=== PATIENT | male | born 1960 | race Caucasian/White ===

== ENCOUNTER 2018-08-16 12:39 | Observation (INO) ==
[2018-08-16] MEDS ORDERED: Isovue-370 500 ML INFUS..BTL IV ONE (13:31)
--- NOTE | 2018-08-16 14:09 | Emergency Department Note ---
Disposition Clinical Impression: Bladder cancer metastasized to bone, Edema of left lower extremity Disposition: Admitted As Inpatient Condition: Good Referrals: NONE,PCP [Non-Partnered Physician] - Forms: ED Satisfaction Letter Time of Disposition: 17:26 General Adult HPI - General Chief complaint: ED Extremity Problem,Nontraumatic Stated complaint: LLE Swelling / L Side Pain Time Seen by Provider: 08/16/18 13:10 Source: patient Mode of arrival: ambulatory Limitations: no limitations - History of Present Illness HPI Narrative: This is a 58-year-old male who comes to emergency department stating that his left leg has been swelling for the last 10 days. It started at the left ankle, and has progressed all the way up to his groin. He reports no pain except with weightbearing. He states that he has also had intermittent hematuria over the course of the last several months. He does not know why. Pain Scale: 9 - Related Data Allergies Allergy/AdvReac Type Severity Reaction Status Date / Time latex AdvReac Rash Verified 08/16/18 13:14 All systems ED: reviewed and negative except as stated. Cardiovascular: Reports: edema Genitourinary: Reports: hematuria Past Medical History - Past Medical History Medical history: Reports: cancer, hypertension, other Psychiatric history: Reports: no psych history - Social History Smoking Status: Current every day smoker Alcohol use: Reports: rarely Drug use: Reports: none Physical Exam - General Limitations: no limitations General appearance: alert, in no apparent distress - Head Head exam: atraumatic, normocephalic, normal inspection - Eye Eye exam: Present: normal appearance, PERRL, EOMI. Absent: scleral icterus - Chest Chest inspection: Present: normal inspection, symmetric chest wall rise - Respiratory Respiratory exam: Present: normal lung sounds bilaterally - Cardiovascular Cardiovascular exam: Present: regular rate, normal rhythm, normal heart sounds - Abdominal Exam Abdominal exam: Present: soft, Non-Tender. Absent: tenderness, distention, guarding, rebound, rigidity - Extremities Exam Extremities exam: Present: other (The left leg is dramatically swollen compared to the right, and there is 4+ pedal edema at the malleoli progressing to 2+ just below the knee. The right leg has no edema whatsoever.) - Neurological Exam Neurological exam: Present: alert, oriented X3 - Psychiatric Psychiatric exam: Present: normal affect, normal mood - Skin Skin exam: Present: warm, dry, intact, normal color Course Course Narrative: This is a 58-year-old male with hematuria concerning for a serious cause and also with edema of the left leg only concern for DVT. Vital Signs Temperature 97.7 F 08/16/18 12:41 Pulse Rate 82 08/16/18 12:41 Respiratory Rate 15 08/16/18 12:41 Blood Pressure 158/84 08/16/18 12:41 O2 Sat by Pulse Oximetry 99 08/16/18 12:41 Temperature 97.7 F 08/16/18 13:05 Pulse Rate 79 08/16/18 16:21 Respiratory Rate 20 08/16/18 16:21 Blood Pressure 146/69 08/16/18 16:21 O2 Sat by Pulse Oximetry 97 08/16/18 16:21 Oxygen Delivery Oxygen Delivery Room Air Medical Decision Making - MDM Narrative Medical decision making narrative: This is a 58-year-old male who appears to have bladder cancer with metastasis to the left proximal femur and a mass that is compressing the left iliac vein causing severe pedal edema in the left leg. I discussed his case with Dr. Koenig from oncology, who stated that as long as he did not have an incipient fracture of his left femur that he could be treated well here. This noted below, femur x-ray showed no obvious early fracture. I discussed his case with the on-call hospitalist, who accepted him for admission - Lab Data Lab results reviewed: Yes I reviewed the patient's lab results. Lab results narrative: CBC was unremarkable BMP showed hyponatremia at 123 LFT was unremarkable UA showed 15-20 red blood cells but very few white cells Result diagrams: 08/16/18 14:10 08/16/18 14:10 Lab Results 08/16/18 08/16/18 08/16/18 Range/Units 14:10 14:10 14:15 WBC 6.1 (4.3-11.1) K/mcL RBC 3.94 L (4.19-5.50) M/mcL Hgb 13.3 (12.9-16.9) g/dL Hct 37.0 L (37.5-50.1) % MCV 93.9 (83.0-100.0) fL MCH 33.8 H (28.0-33.3) pg MCHC 35.9 H (31.6-35.5) g/dL RDW 11.6 (11.5-14.5) % Plt Count 219 (140-400) K/mcL MPV 9.5 (9.4-12.4) fL Immature Gran % 0.7 (0-4) % Seg Neutrophils % 81.1 % Lymphocytes % 5.3 % Monocytes % 11.5 % Eosinophils % 0.7 % Basophils % 0.7 % Neutrophils # 5.0 (1.6-8.9) K/mcL Lymphocytes # 0.3 L (0.6-4.6) K/mcL Monocytes # 0.7 (0.0-1.3) K/mcL Eosinophils # 0.0 (0.0-0.6) K/mcL Basophils # 0.0 (0.0-0.2) K/mcL Sodium 123 L (136-145) mEq/L Potassium 4.5 (3.5-5.1) mEq/L Chloride 89 L (98-107) mEq/L Carbon Dioxide 28 (23-29) mEq/L BUN 10 (6-20) mg/dL Creatinine 0.92 (0.70-1.30) mg/dL Est GFR ( Amer) > 60 (> 60) Est GFR (Non-Af Amer) > 60 (> 60) BUN/Creatinine Ratio 11 (6-26) Glucose 102 (70-105) mg/dL Calculated Osmolality 255 L (280-300) Calcium 9.4 (8.6-10.3) mg/dL Total Bilirubin 0.5 (0.3-1.0) mg/dL Direct Bilirubin 0.1 (0.0-0.2) mg/dL Indirect Bilirubin 0.4 (0.0-1.2) mg/dL AST 73 H (13-39) Units/L ALT 13 (7-52) Units/L Alkaline Phosphatase 104 (34-104) Units/L Serum Total Protein 6.1 L (6.4-8.9) g/dL Albumin 3.5 (3.5-5.7) g/dL Globulin 2.6 (2.4-3.5) g/dL Albumin/Globulin Ratio 1.3 (1.1-2.2) Urine Color Yellow (Yellow) Urine Clarity Clear (Clear) Urine pH 6.5 (5.0-8.0) pH Units Ur Specific [place] 1.007 L (1.010-1.025) Urine Protein 100 H (Neg-Trace) mg/dL Urine Glucose (UA) Normal (Normal) mg/dL Urine Ketones Negative (Negative) mg/dL Urine Blood Small H (Negative) Urine Nitrite Negative (Negative) Urine Bilirubin Negative (Negative) Urine Urobilinogen Normal (Normal) mg/dL Ur Leukocyte Esterase Negative (Negative) Urine Microscopic RBC 15-30 H (0-3) per hpf Urine Microscopic WBC 0-3 (0-3) per hpf Ur Squamous Epith Cells Many H (None-Few) per lpf Urine Bacteria None Seen (None-Few) per hpf Hyaline Casts None Seen (None-Few) per lpf Ur Culture Indicated? NO (NO) - Radiology Data Radiology results reviewed: Yes I reviewed the patient's radiology results. CT evidence/pelvis was interpreted by radiology, with a verbal report, of high likelihood of bladder cancer as well as metastasis to the proximal left femur. There was also a mass, likely metastasis, and appears to be compressing the left iliac vein. Doppler ultrasound showed no evidence of DVT X-ray of the femur shows no obvious incipient fracture Critical Care Time Critical Care Time: No
[2018-08-16 14:30] LABS: Bilirubin,Urine Negative (Negative); Blood,Urine Small (Negative); Clarity,Urine Clear (Clear); Color,Urine Yellow (Yellow); Glucose,Urine (UA) Normal (Normal); Ketones,Urine Negative (Negative); Leukocyte Esterase,Urine Negative (Negative); Nitrite,Urine Negative (Negative); PH,Urine 6.5 pH Units (5.0-8.0); Protein,Urine 100 mg/dL (Neg-Trace); Specific Gravity,Urine 1.007 (1.010-1.025); Urobilinogen,Urine Normal (Normal)
[2018-08-16 14:31] LABS: RBC,Urine 15-30 per hpf (0-3); Squamous Epithelial Cell,Urine Many per lpf (None-Few); WBC,Urine 0-3 per hpf (0-3)
[2018-08-16 14:32] LABS: Bacteria,Urine None Seen per hpf (None-Few); Hyaline Casts,Urine None Seen per lpf (None-Few)
[2018-08-16 14:34] LABS: Basophils % 0.7 %; Eosinophils % 0.7 %; Hemoglobin 13.3 g/dL (12.9-16.9); Immature Granulocytes % 0.7 % (0-4); Lymphocytes # 0.3 K/mcL (0.6-4.6); Lymphocytes % 5.3 %; Mean Corpuscular HGB Conc 35.9 g/dL (31.6-35.5); Mean Corpuscular Hemoglobin 33.8 pg (28.0-33.3); Mean Corpuscular Volume 93.9 fL (83.0-100.0); Mean Platelet Volume 9.5 fL (9.4-12.4); Monocytes # 0.7 K/mcL (0.0-1.3); Monocytes % 11.5 %; Platelet Count 219 K/mcL (140-400); Red Blood Count 3.94 M/mcL (4.19-5.50); Red Cell Distribution Width 11.6 % (11.5-14.5); Segmented Neutrophils % 81.1 %
[2018-08-16 14:53] LABS: Alanine Aminotransferase 13 Units/L (7-52); Albumin 3.5 g/dL (3.5-5.7); Albumin/Globulin Ratio 1.3 (1.1-2.2); Alkaline Phosphatase 104 Units/L (34-104); Aspartate Amino Transferase 73 Units/L (13-39); BUN/Creatinine Ratio 11 (6-26); Bilirubin,Direct 0.1 mg/dL (0.0-0.2); Bilirubin,Indirect 0.4 mg/dL (0.0-1.2); Bilirubin,Total 0.5 mg/dL (0.3-1.0); Blood Urea Nitrogen 10 mg/dL (6-20); Calcium 9.4 mg/dL (8.6-10.3); Carbon Dioxide 28 mEq/L (23-29); Chloride 89 mEq/L (98-107); Globulin 2.6 g/dL (2.4-3.5); Glucose 102 mg/dL (70-105); Osmolality,Calculated 255 (280-300); Potassium 4.5 mEq/L (3.5-5.1); Sodium 123 mEq/L (136-145); Total Protein 6.1 g/dL (6.4-8.9); eGFR For Non-African Americans > 60 (> 60)
--- NOTE | 2018-08-16 17:55 | Internal Med History&Physical ---
Date of Encounter: 08/16/18 Time of Encounter: 18:00 Internal Medicine - H&P: HPI Chief complaint: left leg swelling Admitted From: Home History of present illness: Mr. Durham is a 58 year old male with pmhx HTN, tobacco dependence, prostate cancer dx in 2013 and treated with radiation/medication at [facility] without any prior bone mets per pt report. He presents from home with LLE edema, gradually worsening over 10 days. started at ankle and now up to thigh. No similar symptoms in past. No pain with ambulation, no injury or falls, but "tightness" in leg from swelling. no recent immobilization, has been going to work every day and drove here to ED. Nothing has made edema better or worse. on ROS he admits to hematuria intermittently over last 2-4 weeks, with blood clots and difficulty urinating at time. currently urinating without blood or clots, believes he is retaining. no cva tenderness, fevers, chills, dysuria. He admits to low back pain, denies saddle parasthesisas, bowel or bladder incontinence, le weakness, numbness or tingling gen- denies weight loss, night sweats cv-no cp, pressure, palpitations, sob, orthopnea, presyncope or palpitations pulm-no sob, wheezing, cough, dyspnea on exertion skin- no rash, pallor, wounds, jaundice Past Med Surg Social Fam HX - Past Medical History Medical history: cancer (prostate), hypertension, other Additional medical history: prostate surgery Psychiatric history: no psych history - Past Surgical History Additional surgical history: L ankle surgery - Social History Smoking Status: Current every day smoker Alcohol use: rarely Drug use: none Current living situation: Home - Independent Recent Out of Country Travel Within the Last 8 Weeks: No - Additional Family History Additional family history: reviewed and non contributory Internal Medicine - H&P: Meds Allergy/AdvReac Type Severity Reaction Status Date / Time latex AdvReac Rash Verified 08/16/18 13:14 All Systems PM: A 10-system review of systems was performed and is negative for pertinent findings except as documented above in the HPI. - Constitutional Vitals: Temp Pulse Resp BP Pulse Ox 97.7 F 79 20 146/69 97 08/16/18 13:05 08/16/18 16:21 08/16/18 16:21 08/16/18 16:21 08/16/18 16:21 Exam: General: awake, alert, appears stated age HEENT:EOM intact, pupils equal, round, no conjunctival pallor, moist mucus membranes, clear oropharynx Neck: supple, trachea midline Cardiovascular:regular rate and rhythm, normal S1 & S2, no rubs, murmurs or gallops. No JVD. radial pulses 2+, dependent LLE edema to thigh Lungs:Normal breath sounds, no wheezes, or crackles. Normal respiratory effort on ra Abdomen:Soft, non-tender, non-distended, no appreciable masses, no HSM,no rigidity, + bowel sounds Extremities: LLE ROM is intact and painless Neurological: AAOx3, CN grossly intact, no focal deficits, sensation to lt touch intact LLE Skin:Normal color, no rash, no pallor, no jaundice : clear yellow urine in urinal at bedside Internal Med - H&P Results - Labs CBC & Chem 7: 08/16/18 14:10 08/16/18 14:10 Labs: Short CBC 08/16/18 Range/Units 14:10 WBC 6.1 (4.3-11.1) K/mcL Hgb 13.3 (12.9-16.9) g/dL Hct 37.0 L (37.5-50.1) % Plt Count 219 (140-400) K/mcL Neutrophils # 5.0 (1.6-8.9) K/mcL BMP 08/16/18 14:10 Sodium 123 L Potassium 4.5 Chloride 89 L Carbon Dioxide 28 BUN 10 Creatinine 0.92 Glucose 102 Calcium 9.4 Liver Function 08/16/18 Range/Units 14:10 Total Bilirubin 0.5 (0.3-1.0) mg/dL Direct Bilirubin 0.1 (0.0-0.2) mg/dL AST 73 H (13-39) Units/L ALT 13 (7-52) Units/L Alkaline Phosphatase 104 (34-104) Units/L Albumin 3.5 (3.5-5.7) g/dL Urine 08/16/18 Range/Units 14:15 Urine Color Yellow (Yellow) Urine Clarity Clear (Clear) Urine pH 6.5 (5.0-8.0) pH Units Ur Specific [place] 1.007 L (1.010-1.025) Urine Protein 100 H (Neg-Trace) mg/dL Urine Glucose (UA) Normal (Normal) mg/dL - Impressions ITS Impressions Abdomen/Pelvis CT 08/16/18 13:31 IMPRESSION: Findings favored to represent primary bladder malignancy with extensive metastatic disease involving pelvic, inguinal and retroperitoneal lymphadenopathy as well as multiple osseous lesions and likely intramuscular metastatic implants in the left lower extremity. Osseous metastasis in the left proximal femur predispose the patient to pathologic fracture. Consider orthopedic consultation. Moderate bilateral hydronephrosis due to mass effect and likely extension of the mass into the distal ureters. Small right-sided pleural effusion and associated airspace disease. Findings were discussed with Nitish Hernandez at 4:21 pm on 08/16/2018. D/ / Enmanuel Suero MD / Enmanuel Suero MD Interpreting Provider: Enmanuel Suero MD Femur X-Ray 08/16/18 16:47 IMPRESSION: Aggressive appearing sclerotic area within the proximal left femur, which given the patient's urinary bladder findings is most compatible with metastatic disease. At this time, a pathologic fracture is not identified. 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 Circumferential soft tissue swelling, which is nonspecific, but correlate with any clinical evidence of proximal venous obstruction. D/ / Ramos Murphy MD / Ramos Murphy MD Interpreting Provider: Ramos Murphy MD - Assessment and plan (1) Edema of left lower extremity Current Visit: Yes Status: Acute Assessment and plan: 2/2 Bladder cancer with LAD compressing L Iliac vein -prelim vasc read of no DVT in LE -femur xr no identifiable fracture -oncology already contacted and aware, will see pt in am -prn pain control (2) Bladder cancer metastasized to bone Current Visit: Yes Status: Acute Assessment and plan: New diagnosis bladder cancer with mets to bone and inguinal retroperitoneal and pelvic LAD with compression of left iliac vein -femur xr no pathologic fx, + avc necrosis left femoral head without subchondral articular collapse -ct a/p with extensive mets to pelvic, inguinal, retroperitoneal LAD, multiple osseous lesions and intra musclular lesions LLE -Moderate BL hydronephrosis due to mass effect on ureters--d/w urology and will eval tomorrow, npo p mn, am coags as likely will need bl nephrosotomy tubes -check pvr but defer greenberg placement at this time pending urology eval -oncology following--will check CT chest wo contrast and lumbar spine xr (3) HTN (hypertension) Current Visit: Yes Status: Chronic Assessment and plan: hold home losartan at this time, monitoring creat with hydronephrosis, had dose today Qualifiers: Hypertension type: essential hypertension Qualified Code(s): I10 - Essential (primary) hypertension (4) Hyponatremia Current Visit: Yes Status: Acute Assessment and plan: Na 123 without any cognitive deficits -while lle is non pitting edema, he appears hypovolemic -very gentle NS ivfs overnight, monitor pvrs, neuro checks and q 6 hr na levels -check tsh, may be related to cancer (5) Tobacco dependence Current Visit: Yes Status: Chronic Assessment and plan: declines patch cessation education - Time Spent With Patient Total time spent is greater than 50% in coordination of care (as documented) at patient's floor/unit and/or counseling patient: Greater than 35 minutes
[2018-08-16] MEDS ORDERED: Acetaminophen 325 MG TABLET PO PRN (18:28)
[2018-08-16] MEDS ORDERED: Naloxone 0.4 MG/ML INJ IVP PRN (18:28)
[2018-08-16] MEDS ORDERED: 0.9 % Sodium Chloride 1,000 ML IVC SCH (18:45)
[2018-08-16] MEDS: traMADol 50 MG TABLET PO PRN (19:16)
[2018-08-17 02:52] LABS: Basophils % 0.8 %; Eosinophils # 0.1 K/mcL (0.0-0.6); Eosinophils % 1.2 %; Hematocrit 34.4 % (37.5-50.1); Hemoglobin 12.3 g/dL (12.9-16.9); Immature Granulocytes % 0.4 % (0-4); Lymphocytes # 0.3 K/mcL (0.6-4.6); Lymphocytes % 6.7 %; Mean Corpuscular HGB Conc 35.8 g/dL (31.6-35.5); Mean Corpuscular Hemoglobin 33.5 pg (28.0-33.3); Mean Corpuscular Volume 93.7 fL (83.0-100.0); Mean Platelet Volume 9.6 fL (9.4-12.4); Monocytes # 0.6 K/mcL (0.0-1.3); Monocytes % 12.4 %; Neutrophils # 3.9 K/mcL (1.6-8.9); Platelet Count 197 K/mcL (140-400); Red Blood Count 3.67 M/mcL (4.19-5.50); Red Cell Distribution Width 11.6 % (11.5-14.5); Segmented Neutrophils % 78.5 %
[2018-08-17 02:58] LABS: INR 1.1; Prothrombin Time 11.9 Seconds (9.4-12.1)
[2018-08-17 03:14] LABS: Alanine Aminotransferase 13 Units/L (7-52); Albumin 3.2 g/dL (3.5-5.7); Albumin/Globulin Ratio 1.3 (1.1-2.2); Alkaline Phosphatase 91 Units/L (34-104); Aspartate Amino Transferase 69 Units/L (13-39); BUN/Creatinine Ratio 14 (6-26); Bilirubin,Total 0.4 mg/dL (0.3-1.0); Blood Urea Nitrogen 12 mg/dL (6-20); Calcium 9.1 mg/dL (8.6-10.3); Carbon Dioxide 26 mEq/L (23-29); Chloride 94 mEq/L (98-107); Globulin 2.4 g/dL (2.4-3.5); Glucose 94 mg/dL (70-105); Osmolality,Calculated 262 (280-300); Potassium 3.5 mEq/L (3.5-5.1); Sodium 126 mEq/L (136-145); Total Protein 5.6 g/dL (6.4-8.9); eGFR For Non-African Americans > 60 (> 60)
[2018-08-17 03:25] LABS: Thyroid Stimulating Hormone 3.042 mcIU/mL (0.340-5.600)
[2018-08-17] MEDS: traMADol 50 MG TABLET PO PRN ×2 (05:59→22:45)
--- NOTE | 2018-08-17 08:44 | Urology - Consult Note ---
<Kamryn Mcallister N - Last Filed: 08/17/18 08:39> Date of Encounter: 08/17/18 Time of Encounter: 08:20 - Assessment and Plan (1) Prostate cancer metastatic to bone Current Visit: Yes Status: Acute Assessment and plan: Patient is a 58-year-old male who presents with a history of metastatic prostate cancer. Patient is currently following with [facility] oncology and recently finished radium 223 infusion. Patient reports his last PSA with it was to oncology was around 4. Patient is unsure when his last PSA was drawn. Current PSA is 115.78. (2) Bladder cancer metastasized to bone Current Visit: Yes Status: Acute Assessment and plan: Patient is a 58-year-old male who presents with a history of bladder tumor. From patient's history, it appears he has undergone TURBT in the past. CT scan is highly suggestive of metastatic urothelial cancer. There is concern for mass effect in the bladder causing hydronephrosis in the kidneys. Renal function is reassuring. Counseled patient on potential damage to the kidney if hydronephrosis is not resolved. Patient will remain nothing by mouth; interventional radiology has been consulted for CT guided lymph node biopsy. Urology CN:HPI Consult date: 08/17/18 Reason for consult Urology: Hydronephrosis (metastatic bladder ca, prostate ca) History of present illness: Patient is a 58-year-old male who presents with a history significant for metastatic prostate cancer, bladder cancer, and bilateral hydronephrosis. Mr. Durham was diagnosed with prostate cancer in May 2014 and subsequently underwent a radical prostatectomy in September 2014 at [facility]. Postoperatively, his PSA never became undetectable, and he underwent his first round of radiation in March 2015. Patient most recently finished radium-223 infusion in May 2018 at the [facility]. Patient is aware of bony metastasis and states he became concerned over the last several days with progressive left lower extremity swelling and severe left flank pain. Patient was evaluated at [facility] ED with multiple scans confirming widespread osseous and pulmonary metastatic disease. CT of the abdomen and pelvis suggests primary bladder cancer, which is a new finding per patient. Patient states he has undergone several removals of "bladder polyps" with his urologist at [facility]. Patient states he was never told he had bladder cancer prior to this visit. Patient admits to a long-term smoking history. Patient states he had a grandfather with renal cancer but is unaware of any prostate cancer or other pathology in his family history. Patient reports 2 weeks ago he noticed a large amount of gross hematuria and was passing multiple large clots. Patient states this is the first time he is passed a large amount of blood in his urine other than when he underwent "bladder polyp removal" 3-4 years ago. Past Med Surg Social Fam HX - Past Medical History Medical history: cancer, hypertension, other Additional medical history: prostate surgery Psychiatric history: no psych history - Past Surgical History Additional surgical history: L ankle surgery - Social History Smoking Status: Current every day smoker Alcohol use: rarely Drug use: none Medications and Allergies Calcium Carbonate/Vitamin D3 [Calcium 600-Vit D3 400 Tablet] 1 tab PO DAILY 08/16/18 [History] Losartan/Hydrochlorothiazide [Losartan-Hctz 50-12.5 mg Tab] 1 tab PO DAILY 08/16/18 [History] Allergy/AdvReac Type Severity Reaction Status Date / Time latex AdvReac Rash Verified 08/16/18 13:14 Review of Systems - Constitutional fatigue, no chills, no fever(s) - EENT Nose, mouth and throat: no dizziness, no headache(s) - Cardiovascular no chest pain, no diaphoresis, no dyspnea - Respiratory no cough, no dyspnea - Gastrointestinal no abdominal pain, no nausea, no vomiting - Genitourinary flank pain (left flank pain ), hematuria, no difficulty urinating, no urinary frequency, no urinary hesitancy, no urinary incontinence, no urinary urgency - Musculoskeletal back pain, no muscle weakness - Integumentary swelling, no erythema, no rash - Neurological no confusion, no syncope - Psychiatric no anxiety, no confusion - Hematologic/Lymphatic no easy bleeding, no easy bruising - Allergic/Immunologic no throat swelling, no wheezing Exam Initial Vital Signs Temp Pulse Resp BP Pulse Ox 97.7 F 82 15 158/84 99 08/16/18 12:41 08/16/18 12:41 08/16/18 12:41 08/16/18 12:41 08/16/18 12:41 - General physical appearance Present: well developed, no distress, no pain - Eyes Present: PERRL, normal ocular movement - ENT Present: normal nares, no hearing loss - Neck Present: no masses, trachea midline - Cardiovascular Cardiovascular exam IM: RRR - Abdomen Abdomen: Present: soft, tender (left cvat) - Integumentary Present: no rash, no abnormal pigmentation - Neurologic Present: normal coordination - Musculoskeletal Present: other (2+ LLE edema extending from mid thigh to dorsum of left foot ) Urology Results - Labs 08/17/18 02:41 08/17/18 02:41 Abnormal lab results RBC 3.67 M/mcL (4.19-5.50) L 08/17/18 02:41 Hgb 12.3 g/dL (12.9-16.9) L 08/17/18 02:41 Hct 34.4 % (37.5-50.1) L 08/17/18 02:41 MCH 33.5 pg (28.0-33.3) H 08/17/18 02:41 MCHC 35.8 g/dL (31.6-35.5) H 08/17/18 02:41 Lymphocytes # 0.3 K/mcL (0.6-4.6) L 08/17/18 02:41 Sodium 126 mEq/L (136-145) L 08/17/18 02:41 Chloride 94 mEq/L (98-107) L 08/17/18 02:41 Calculated Osmolality 262 (280-300) L 08/17/18 02:41 AST 69 Units/L (13-39) H 08/17/18 02:41 Serum Total Protein 5.6 g/dL (6.4-8.9) L 08/17/18 02:41 Albumin 3.2 g/dL (3.5-5.7) L 08/17/18 02:41 Prostate Specific Ag 115.78 ng/mL (Less than 4.00) H 08/17/18 02:41 Ur Specific [place] 1.007 (1.010-1.025) L 08/16/18 14:15 Urine Protein 100 mg/dL (Neg-Trace) H 08/16/18 14:15 Urine Blood Small (Negative) H 08/16/18 14:15 Urine Microscopic RBC 15-30 per hpf (0-3) H 08/16/18 14:15 Ur Squamous Epith Cells Many per lpf (None-Few) H 08/16/18 14:15 Diabetes panel 08/16/18 08/16/18 08/17/18 Range/Units 14:10 20:22 02:41 Sodium 123 L 127 L 126 L (136-145) mEq/L Potassium 4.5 3.5 (3.5-5.1) mEq/L Chloride 89 L 94 L (98-107) mEq/L Carbon Dioxide 28 26 (23-29) mEq/L BUN 10 12 (6-20) mg/dL Creatinine 0.92 0.83 (0.70-1.30) mg/dL Glucose 102 94 (70-105) mg/dL Calcium 9.4 9.1 (8.6-10.3) mg/dL AST 73 H 69 H (13-39) Units/L ALT 13 13 (7-52) Units/L Alkaline Phosphatase 104 91 (34-104) Units/L Albumin 3.5 3.2 L (3.5-5.7) g/dL Thyroid panel 08/17/18 Range/Units 02:41 TSH 3.042 (0.340-5.600) mcIU/mL Calcium panel 08/16/18 08/17/18 Range/Units 14:10 02:41 Calcium 9.4 9.1 (8.6-10.3) mg/dL Albumin 3.5 3.2 L (3.5-5.7) g/dL Pituitary panel 08/16/18 08/16/18 08/17/18 Range/Units 14:10 20:22 02:41 Sodium 123 L 127 L 126 L (136-145) mEq/L Potassium 4.5 3.5 (3.5-5.1) mEq/L Chloride 89 L 94 L (98-107) mEq/L Carbon Dioxide 28 26 (23-29) mEq/L BUN 10 12 (6-20) mg/dL Creatinine 0.92 0.83 (0.70-1.30) mg/dL Glucose 102 94 (70-105) mg/dL Calcium 9.4 9.1 (8.6-10.3) mg/dL TSH 3.042 (0.340-5.600) mcIU/mL Adrenal panel 08/16/18 08/16/18 08/17/18 Range/Units 14:10 20:22 02:41 Sodium 123 L 127 L 126 L (136-145) mEq/L Potassium 4.5 3.5 (3.5-5.1) mEq/L Chloride 89 L 94 L (98-107) mEq/L Carbon Dioxide 28 26 (23-29) mEq/L BUN 10 12 (6-20) mg/dL Creatinine 0.92 0.83 (0.70-1.30) mg/dL Glucose 102 94 (70-105) mg/dL Calcium 9.4 9.1 (8.6-10.3) mg/dL Total Bilirubin 0.5 0.4 (0.3-1.0) mg/dL AST 73 H 69 H (13-39) Units/L ALT 13 13 (7-52) Units/L Alkaline Phosphatase 104 91 (34-104) Units/L Albumin 3.5 3.2 L (3.5-5.7) g/dL All other labs normal. - Imaging CT scan - abdomen: report reviewed, image reviewed CT scan - pelvis: report reviewed, image reviewed Consult Discharge Plan - Plan Referrals: Fanny Malone CNP [Primary Care Provider] - <Bk Hutton - Last Filed: 08/17/18 11:57> Date of Encounter: 08/17/18 - Assessment and Plan (1) Hydronephrosis Current Visit: Yes Status: Acute Assessment and plan: Patient was seen and examined independently. I agree with the plan as written by Kamryn Mcallister. Patient's hydronephrosis is mild to moderate at this time. His serum creatinine is normal. No recommendation for urgent nephrostomy tubes at this time. Recommend to follow serum creatinine. If patient's creatinine starts to worsen then would consider bilateral nephrostomy tubes. Qualifiers: Hydronephrosis type: other Qualified Code(s): N13.39 - Other hydronephrosis (2) Bladder cancer metastasized to bone Current Visit: Yes Status: Acute Assessment and plan: I question whether the patient has ever had bladder cancer. Patient did undergo a TURBT in August 2014 prior to prostatectomy which revealed invasive prostate cancer in the bladder. I cannot find any evidence of a TURBT or diagnosis of bl adder cancer in the patient's [facility] chart. (3) Prostate cancer metastatic to bone Current Visit: Yes Status: Acute Assessment and plan: Patient had his prostate removed in September 2014. He a [facility] 9 prostate cancer with the pathological stage of T3b n0. Patient has undergone multiple treatments with the oncology department at [facility]. Patient's prostate cancer is advanced and advancing rapidly. Patient did have a PSA in June 14 which was 37. Subsequent PSA in July 05 was 56. This shows a very rapid rate of progression in the patient's prostate cancer. I believe most of the patient's metastatic disease is likely related to his prostate cancer. No further intervention warranted for patient's prostate cancer from urology standpoint. Recommend for patient to follow-up with his oncologist. Exam Initial Vital Signs Temp Pulse Resp BP Pulse Ox 97.7 F 82 15 158/84 99 08/16/18 12:41 08/16/18 12:41 08/16/18 12:41 08/16/18 12:41 08/16/18 12:41 Urology Results - Labs 08/17/18 02:41 08/17/18 02:41 Abnormal lab results RBC 3.67 M/mcL (4.19-5.50) L 08/17/18 02:41 Hgb 12.3 g/dL (12.9-16.9) L 08/17/18 02:41 Hct 34.4 % (37.5-50.1) L 08/17/18 02:41 MCH 33.5 pg (28.0-33.3) H 08/17/18 02:41 MCHC 35.8 g/dL (31.6-35.5) H 08/17/18 02:41 Lymphocytes # 0.3 K/mcL (0.6-4.6) L 08/17/18 02:41 Sodium 126 mEq/L (136-145) L 08/17/18 02:41 Chloride 94 mEq/L (98-107) L 08/17/18 02:41 Calculated Osmolality 262 (280-300) L 08/17/18 02:41 AST 69 Units/L (13-39) H 08/17/18 02:41 Serum Total Protein 5.6 g/dL (6.4-8.9) L 08/17/18 02:41 Albumin 3.2 g/dL (3.5-5.7) L 08/17/18 02:41 Prostate Specific Ag 115.78 ng/mL (Less than 4.00) H 08/17/18 02:41 Ur Specific [place] 1.007 (1.010-1.025) L 08/16/18 14:15 Urine Protein 100 mg/dL (Neg-Trace) H 08/16/18 14:15 Urine Blood Small (Negative) H 08/16/18 14:15 Urine Microscopic RBC 15-30 per hpf (0-3) H 08/16/18 14:15 Ur Squamous Epith Cells Many per lpf (None-Few) H 08/16/18 14:15 Diabetes panel 08/16/18 08/16/18 08/17/18 Range/Units 14:10 20:22 02:41 Sodium 123 L 127 L 126 L (136-145) mEq/L Potassium 4.5 3.5 (3.5-5.1) mEq/L Chloride 89 L 94 L (98-107) mEq/L Carbon Dioxide 28 26 (23-29) mEq/L BUN 10 12 (6-20) mg/dL Creatinine 0.92 0.83 (0.70-1.30) mg/dL Glucose 102 94 (70-105) mg/dL Calcium 9.4 9.1 (8.6-10.3) mg/dL AST 73 H 69 H (13-39) Units/L ALT 13 13 (7-52) Units/L Alkaline Phosphatase 104 91 (34-104) Units/L Albumin 3.5 3.2 L (3.5-5.7) g/dL Thyroid panel 08/17/18 Range/Units 02:41 TSH 3.042 (0.340-5.600) mcIU/mL Calcium panel 08/16/18 08/17/18 Range/Units 14:10 02:41 Calcium 9.4 9.1 (8.6-10.3) mg/dL Albumin 3.5 3.2 L (3.5-5.7) g/dL Pituitary panel 08/16/18 08/16/18 08/17/18 Range/Units 14:10 20:22 02:41 Sodium 123 L 127 L 126 L (136-145) mEq/L Potassium 4.5 3.5 (3.5-5.1) mEq/L Chloride 89 L 94 L (98-107) mEq/L Carbon Dioxide 28 26 (23-29) mEq/L BUN 10 12 (6-20) mg/dL Creatinine 0.92 0.83 (0.70-1.30) mg/dL Glucose 102 94 (70-105) mg/dL Calcium 9.4 9.1 (8.6-10.3) mg/dL TSH 3.042 (0.340-5.600) mcIU/mL Adrenal panel 08/16/18 08/16/18 08/17/18 Range/Units 14:10 20:22 02:41 Sodium 123 L 127 L 126 L (136-145) mEq/L Potassium 4.5 3.5 (3.5-5.1) mEq/L Chloride 89 L 94 L (98-107) mEq/L Carbon Dioxide 28 26 (23-29) mEq/L BUN 10 12 (6-20) mg/dL Creatinine 0.92 0.83 (0.70-1.30) mg/dL Glucose 102 94 (70-105) mg/dL Calcium 9.4 9.1 (8.6-10.3) mg/dL Total Bilirubin 0.5 0.4 (0.3-1.0) mg/dL AST 73 H 69 H (13-39) Units/L ALT 13 13 (7-52) Units/L Alkaline Phosphatase 104 91 (34-104) Units/L Albumin 3.5 3.2 L (3.5-5.7) g/dL All other labs normal.
[2018-08-17] MEDS ORDERED: Bicalutamide 50 MG TABLET PO SCH (09:00)
--- NOTE | 2018-08-17 10:33 | Internal Med Progress Note ---
<Carolee Miller - Last Filed: 08/17/18 14:54> Hospitalist Progress Note - Encounter Date of Encounter: 08/17/18 - Exam Vitals: Temp Pulse Resp BP Pulse Ox 97.9 F 61 15 112/54 94 08/17/18 10:02 08/17/18 10:02 08/17/18 10:02 08/17/18 10:02 08/17/18 10:02 - Assessment and Plan (1) Edema of left lower extremity Current Visit: Yes Status: Acute (2) Bladder cancer metastasized to bone Current Visit: Yes Status: Acute (3) HTN (hypertension) Current Visit: Yes Status: Chronic (4) Hyponatremia Current Visit: Yes Status: Acute (5) Tobacco dependence Current Visit: Yes Status: Chronic - Time Spent with Patient Total time spent is greater than 50% in coordination of care (as documented) at patient's floor/unit and/or counseling patient: Internal Medicine: Result - Labs CBC & Chem 7: 08/17/18 02:41 08/17/18 13:46 Labs: Short CBC 08/16/18 08/17/18 Range/Units 14:10 02:41 WBC 6.1 4.9 (4.3-11.1) K/mcL Hgb 13.3 12.3 L (12.9-16.9) g/dL Hct 37.0 L 34.4 L (37.5-50.1) % Plt Count 219 197 (140-400) K/mcL Neutrophils # 5.0 3.9 (1.6-8.9) K/mcL BMP 08/16/18 08/16/18 08/17/18 14:10 20:22 02:41 Sodium 123 L 127 L 126 L Potassium 4.5 3.5 Chloride 89 L 94 L Carbon Dioxide 28 26 BUN 10 12 Creatinine 0.92 0.83 Glucose 102 94 Calcium 9.4 9.1 08/17/18 08:03 Sodium 130 L Potassium Chloride Carbon Dioxide BUN Creatinine Glucose Calcium Liver Function 08/16/18 08/17/18 Range/Units 14:10 02:41 Total Bilirubin 0.5 0.4 (0.3-1.0) mg/dL Direct Bilirubin 0.1 (0.0-0.2) mg/dL AST 73 H 69 H (13-39) Units/L ALT 13 13 (7-52) Units/L Alkaline Phosphatase 104 91 (34-104) Units/L Albumin 3.5 3.2 L (3.5-5.7) g/dL Urine 08/16/18 Range/Units 14:15 Urine Color Yellow (Yellow) Urine Clarity Clear (Clear) Urine pH 6.5 (5.0-8.0) pH Units Ur Specific Edison 1.007 L (1.010-1.025) Urine Protein 100 H (Neg-Trace) mg/dL Urine Glucose (UA) Normal (Normal) mg/dL - ABG Interpretation ABG results: PT/INR, D-dimer PT 11.9 Seconds (9.4-12.1) 08/17/18 02:41 - Impressions Impressions Abdomen/Pelvis CT 08/16/18 13:31 IMPRESSION: Findings favored to represent primary bladder malignancy with extensive metastatic disease involving pelvic, inguinal and retroperitoneal lymphadenopathy as well as multiple osseous lesions and likely intramuscular metastatic implants in the left lower extremity. Osseous metastasis in the left proximal femur predispose the patient to pathologic fracture. Consider orthopedic consultation. Moderate bilateral hydronephrosis due to mass effect and likely extension of the mass into the distal ureters. Small right-sided pleural effusion and associated airspace disease. Findings were discussed with Nitish Hernandez at 4:21 pm on 08/16/2018. D/ / Enmanuel Suero MD / Enmanuel Suero MD Interpreting Provider: Enmanuel Suero MD Femur X-Ray 08/16/18 16:47 IMPRESSION: Aggressive appearing sclerotic area within the proximal left femur, which given the patient's urinary bladder findings is most compatible with metastatic disease. At this time, a pathologic fracture is not identified. 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 Circumferential soft tissue swelling, which is nonspecific, but correlate with any clinical evidence of proximal venous obstruction. D/ / Ramos Murphy MD / Ramos Murphy MD Interpreting Provider: Ramos Murphy MD Chest CT 08/16/18 18:33 IMPRESSION: 1. Indeterminate pulmonary nodules may be related to metastatic disease. 2. Right pleural effusion is nonspecific. 3. Mediastinal and probable right hilar adenopathy suspicious for metastatic disease. 4. Rather extensive sternal lesion extending superficially and deep into the surrounding soft tissues, presumably reflecting metastatic disease. 5. Sclerotic lesion partially visualized proximal right humerus presumably reflecting metastatic disease. D/ / Gibson Gomez / Gibson Gomez Interpreting Provider: Gibson Gomez Lumbar Spine X-Ray 08/16/18 18:33 IMPRESSION: 1. Mild degenerative changes predominate lower lumbar spine. 2. No lumbar fracture or listhesis. 3. Mild, bilaterally symmetrical SI joint osteoarthritis is noted. 4. Redemonstration of left T11 sclerotic focus presumably reflecting metastatic disease. D/ / Gibson Gomez / Gibson Gomez Interpreting Provider: Gibson Gomez Consult Discharge Plan - Plan Referrals: Fanny Malone CNP [Primary Care Provider] - - Attending Attestation The history, physical exam, and medical decision making was performed by medical valente Torres either while I was physically present and actively involved or I personally re-performed the exam and medical decision making. I have verified t he accuracy of the medical student's documentation with regards to the history, physical exam findings, and medical decision making. Mr Durham was admitted with LLE edema and hematuria, and subsequently found to have metastatic bladder cancer, with known hx prostate cancer. He opted to be seen locally by our [facility] team as opposed to transfer to [facility] where he has established Oncology care. He was seen in eval by both oncology and urology this admission. He is being discharged to home with radiation oncology appt this this week and outpt oncology follow up for further management/testing. He did not require urology intervention for hydronephrosis but does require outpt creat follow up. He was incidentally found to have hyponatremia, unclear etiology at this time given continued cancer work up, this may reprresent SIADH, however he also has daily heavy beer use. He displayed no cognitive deficits or neuro deficits and opted for outpt fu as he is very eager to discharge to home and attend outpt radiation appt planned for tomorrow. Given his stability and normal mental status he will be referred to his pcp for further work up and monitoring. Pt understands risk vs benefit of further treatment of hyponatremia. awake, alert, tightness in leg has improved, no pain, no back pain. Denies sob, fatigue, cp, fevers, chills. gen- alert, awake,appears stated age eyes- pupils equal round , no conjunctival pallor, no scleral icterus cv- reg rate and rhythm, normal s1,s2, no murmurs appreciated, non pitting edema LLE to thigh lungs- ctabl, no wheezing, rhonchi or crackles, normal resp effort on ra abd- soft, non tender, non distended, + bs, no appreciable masses neuro- AAOx3, CN grossly intact, no focal deficits, no hand tremor 2/2 Bladder cancer with LAD compressing L Iliac vein -no DVT -femur xr no identifiable fracture -oupt oncology fu as discussed with oncology team today, outpt radiation appt this week New diagnosis bladder cancer with mets to bone and inguinal retroperitoneal and pelvic LAD with compression of left iliac vein -femur xr no pathologic fx, + avc necrosis left femoral head without subchondral articular collapse -ct a/p with extensive mets to pelvic, inguinal, retroperitoneal LAD, multiple osseous lesions and intra musclular lesions LLE -Moderate BL hydronephrosis due to mass effect on ureters--d/w urology no need for urgent nephrosotomy tubes at this time, requires outpt creat check and further outt intervention as needed -CT chest numerous nodes/mets to bone -Lumbar XR- T11 lesion, no fractures -I personally discussed with oncology team today- plan is for outpt radiation, further imaging, outpt biopsy and treatment -oncology scheduling all appts HTN- resume home losartan, creat monitoring as above Hyponatremia, improving Na 123 without any cognitive deficits on admit slow uptrend to 130 thus far this admission with gentle ivf overnight as he appeared hypovolemic -he is eager for dc to home and was agreeable to final check of sodium, however he corrected to 132 which is just above goal for 24 hrs -will keep pt, give fluids to slow correction and recheck na with continued trending -this may be related to lung mets, have not yet ruled out brain mets, he also drink about 6pack of beer daily, tsh was wnl, osm studies and urine studies remain pending Now admits to daily etoh use- ciwa in place, no s/s of withdrawal, use varies from 2-6 beers nightly per pt dispo will be to home hopefully <BrianJosh W - Last Filed: 08/17/18 16:56> Hospitalist Progress Note - Encounter Date of Encounter: 08/17/18 Time of Encounter: 09:15 - Subjective Interval History: A 58 year old male presents with LLE edema that has worsened over the past 11 days. Patient also presents with left lower LBP. Patient was evaluated at bedside today and admits to incontinence that has been present since his diagnosis of prostate cancer, and left lower LBP. He also states he had blood in his urine and was passing clots 2 weeks ago. He denies fevers, fatigue, SOB, cough, wheezing, nausea, vomiting, diarrhea, polyuria, dysuria, weakness, numbness, tingling, paralysis, saddle anesthesia, abrasions, and skin discoloration. - Exam Vitals: Temp Pulse Resp BP Pulse Ox 97.9 F 61 15 112/54 94 08/17/18 10:02 08/17/18 10:02 08/17/18 10:02 08/17/18 10:02 08/17/18 10:02 Exam: Gen: patient A/Ox3. In no acute distress. Head: normocephalic, atraumatic. Neck: soft, supple, trachea midline. No cervical lymphadenopathy. CV: RRR, normal S1 and S2. No murmurs, gallop, or rubs. Resp: CTA bilaterally with full breath sounds, symmetric thorax. No wheezes, rhonchi, or rales. GI: soft, non-tender, non-distended. BSx4. No hepatomegaly, splenomegaly, ecchymoses, or lesions. Neuro: sensation normal in UE and LE bilaterally. Strength normal in UE and LE bilaterally. Extremities: non-pitting edema present in left leg, from ankle to thigh. Radial and dorsalis pedis pulses +2 bilaterally. No rashes present. - Assessment and Plan (1) Bladder cancer metastasized to bone Current Visit: Yes Status: Acute Assessment and Plan: Patient was asked about being tranferred to [facility] since this is where his oncology team is for his prostate CA. Patient denied and states he wants somewhere local. Consulted urology. They said keep the patient NPO, and that they consulted i nterventional radiology for a CT guided lymph node biopsy. Plan: -Oncology following -Continue to check PVRs (2) Edema of left lower extremity Current Visit: Yes Status: Acute Assessment and Plan: LLE edema is a non-pitting edema. Plan: -Pain control PRN -Oncology following (3) Hyponatremia Current Visit: Yes Status: Acute Assessment and Plan: Patient seemed to be hypovolemic, thus received NS IVFs over night. Sodium level upon admission was 123. Is currently 132. Plan: -Check sodium levels q4hrs for overcorrecting -Urine sodium and urine osmolality levels pending (4) HTN (hypertension) Current Visit: Yes Status: Chronic Assessment and Plan: Plan: -Hold his home losartan and continue to monitor his creatinine level from his bilateral hydronephrosis. (5) Alcohol abuse Current Visit: Yes Status: Acute Assessment and Plan: Patient admits to daily alcohol use. States he has anywhere between 3-6 beers/da y. No signs or symptoms of alcohol withdrawal. Plan: -CIWA in place, ativan ordered (6) Tobacco dependence Current Visit: Yes Status: Chronic Assessment and Plan: Plan: -Education for smoking cessation DVT Prophylaxis: SCD of R leg only - Time Spent with Patient Total time spent is greater than 50% in coordination of care (as documented) at patient's floor/unit and/or counseling patient: Internal Medicine: Result - Labs CBC & Chem 7: 08/17/18 02:41 08/17/18 16:09 Labs: Short CBC 08/16/18 08/17/18 Range/Units 14:10 02:41 WBC 6.1 4.9 (4.3-11.1) K/mcL Hgb 13.3 12.3 L (12.9-16.9) g/dL Hct 37.0 L 34.4 L (37.5-50.1) % Plt Count 219 197 (140-400) K/mcL Neutrophils # 5.0 3.9 (1.6-8.9) K/mcL BMP 08/16/18 08/16/18 08/17/18 14:10 20:22 02:41 Sodium 123 L 127 L 126 L Potassium 4.5 3.5 Chloride 89 L 94 L Carbon Dioxide 28 26 BUN 10 12 Creatinine 0.92 0.83 Glucose 102 94 Calcium 9.4 9.1 Liver Function 08/16/18 08/17/18 Range/Units 14:10 02:41 Total Bilirubin 0.5 0.4 (0.3-1.0) mg/dL Direct Bilirubin 0.1 (0.0-0.2) mg/dL AST 73 H 69 H (13-39) Units/L ALT 13 13 (7-52) Units/L Alkaline Phosphatase 104 91 (34-104) Units/L Albumin 3.5 3.2 L (3.5-5.7) g/dL Urine 08/16/18 Range/Units 14:15 Urine Color Yellow (Yellow) Urine Clarity Clear (Clear) Urine pH 6.5 (5.0-8.0) pH Units Ur Specific Edison 1.007 L (1.010-1.025) Urine Protein 100 H (Neg-Trace) mg/dL Urine Glucose (UA) Normal (Normal) mg/dL - ABG Interpretation ABG results: PT/INR, D-dimer PT 11.9 Seconds (9.4-12.1) 08/17/18 02:41 - Impressions Impressions Abdomen/Pelvis CT 08/16/18 13:31 IMPRESSION: Findings favored to represent primary bladder malignancy with extensive metastatic disease involving pelvic, inguinal and retroperitoneal lymphadenopathy as well as multiple osseous lesions and likely intramuscular metastatic implants in the left lower extremity. Osseous metastasis in the left proximal femur predispose the patient to pathologic fracture. Consider orthopedic consultation. Moderate bilateral hydronephrosis due to mass effect and likely extension of the mass into the distal ureters. Small right-sided pleural effusion and associated airspace disease. Findings were discussed with Nitish Hernandez at 4:21 pm on 08/16/2018. D/ / Enmanuel Suero MD / Enmanuel Suero MD Interpreting Provider: Enmanuel Suero MD Femur X-Ray 08/16/18 16:47 IMPRESSION: Aggressive appearing sclerotic area within the proximal left femur, which given the patient's urinary bladder findings is most compatible with metastatic disease. At this time, a pathologic fracture is not identified. 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 Circumferential soft tissue swelling, which is nonspecific, but correlate with any clinical evidence of proximal venous obstruction. D/ / Ramos Murphy MD / Ramos Murphy MD Interpreting Provider: Ramos Murphy MD Chest CT 08/16/18 18:33 IMPRESSION: 1. Indeterminate pulmonary nodules may be related to metastatic disease. 2. Right pleural effusion is nonspecific. 3. Mediastinal and probable right hilar adenopathy suspicious for metastatic disease. 4. Rather extensive sternal lesion extending superficially and deep into the surrounding soft tissues, presumably reflecting metastatic disease. 5. Sclerotic lesion partially visualized proximal right humerus presumably reflecting metastatic disease. D/ / Gibson Gomez / Gibson Gomez Interpreting Provider: Gibson Gomez Lumbar Spine X-Ray 08/16/18 18:33 IMPRESSION: 1. Mild degenerative changes predominate lower lumbar spine. 2. No lumbar fracture or listhesis. 3. Mild, bilaterally symmetrical SI joint osteoarthritis is noted. 4. Redemonstration of left T11 sclerotic focus presumably reflecting metastatic disease. D/ / Gibson Gomez / Gibson Gomez Interpreting Provider: Gibson Gomez <Carolee Miller M - Last Filed: 08/17/18 14:54> (3) HTN (hypertension) Qualifiers: Hypertension type: essential hypertension Qualified Code(s): I10 - Essential (primary) hypertension <Josh Torres W - Last Filed: 08/17/18 16:56> (4) HTN (hypertension) Qualifiers: Hypertension type: essential hypertension Qualified Code(s): I10 - Essential (primary) hypertension
[2018-08-17] MEDS ORDERED: *HR* LORazepam 2 MG/ML VIAL IVP PRN ×3 (11:49)
[2018-08-17] MEDS: D5% in Water 250 ML IVC SCH ×2 (15:14→17:21)
--- NOTE | 2018-08-17 16:40 | Oncology Inp Consult Note ---
<Rosemarie Stevens - Last Filed: 08/17/18 17:05> Date of Encounter: 08/17/18 Time of Encounter: 12:30 Assessment and Plan (1) Prostate cancer metastatic to bone Status: Acute Assessment and plan: Oncology history as detailed in history of present illness Patient is requesting to establish care closer to home. Dr. Koenig discussed recent radiographic imaging consistent with progression of disease and potential for another new primary malignancy with radiographic evidence concerning for primary bladder carcinoma Discussed concern over radiographic progression and increase in PSA from 59.55 on 07/05/2018 to now 115.78 on 08/17/2018, and the need to focus on control of prostate cancer. Following radiotherapy as discussed below will likely plan to begin systemic treatment with docetaxel For his aggressive sclerotic lesion to left femoral head which is causing avascular necrosis as well as extensive soft tissue edema and obstruction of venous flow, he will plan to consult with radiation oncology as soon as possible as an outpatient either tomorrow or Wednesday For his lower extremity edema recommend 20-30 mm compression hose, this was discussed with nursing staff Will arrange for a consult with radiation oncology tomorrow or Wednesday and follow up with Dr. Koenig on Wednesday or Wednesday of next week. This plan was discussed in detail with patient at bedside, oncology is okay with discharge as soon as cleared per medical team - Data of Consult Patient: new to practice Consult date: 08/17/18 Requesting Physician: Carolee Miller Primary Care Provider: Fanny Malone CNP - Consult Narrative Reason for consult: Metastatic castrate resistant prostate cancer History of present illness: Mr. Durham is a very pleasant 57-year-old male with oncologic history significant for metastatic castrate resistant prostate cancer. He is a current patient with Dr. Farah at [facility] however he is looking to transfer care closer to home. His oncology history is listed below. He presented to [facility] ED with report of acute worsening of left lower extremity edema over the past 10 days. Edema initially began in the left ankle and is now extended into his left thigh. He denies pain with ambulation, the report of injury or falls, his pain is reported to be more so secondary to the feeling of tightness in his skin from edema. He also reports intermittent hematuria with the passing of large blood clots over the past 2-4 weeks. Patient states he is undergone several removals of "bladder polyps" per his urologist at [facility]. Upon presentation to the ER x-ray of the left femur reveals an aggressive appearing sclerotic lesion within the proximal left femur, evidence of avascular necrosis involving the left femoral head but without evidence of subchondral articular collapse, circumferential soft tissue swelling that would correlate with any clinical evidence of proximal venous obstruction and explaining patient's lower extremity edema. At this time, pathologic fracture is not identified. CT of the chest reveals indeterminate pulmonary nodules, right pleural effusion, mediastinal probable right hilar adenopathy, rather extensive sternal lesion extending superficially and deep into the surrounding soft tissues as well as sclerotic lesion partially visualized the proximal right humerus. CT of the abdomen and pelvis reveals findings that appear consistent with a primary bladder malignancy with extensive metastatic disease involving the pelvic, inguinal and retroperitoneal lymph nodes as well as multiple osseous lesions and likely intramuscular metastatic implants in the left lower extremity as well as moderate bilateral hydronephrosis due to mass effect and likely extension of the mass into the distal ureters. PSA is noted at 115.78. Mr. Durham has a long standing smoking history, currently smokes 1.5 PPD and not interested in quitting. 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 He lives at home with his . Oncology history obtained from [facility] documentation as below: Mr. Durham was found to have a PSA of 42 on 05/2012. He had a biopsy done on 06/2014 which showed prostate adenocarcinoma Rob 4+4. On 08/2014 he underwent a TURBT, rob 7 (4+3). He had local progression to the bladder neck and + margins so on 10/01/2014 he underwent a robotic assisted laparoscopic radical prostatectomy and lymph node dissection. His biopsy was positive for [place] 9 (4+5). His post op course was complicated with a deep post op wound infection and a pelvic abscess that required a transrectal abscess drainage. He also had a bladder leak that required multiple cystoscopies. His post-op PSA was 2.49 and then 3.09. He was started on Eligard on 11/2014. On 05/2015 he completed EBRT for 39 doses (25 pelvis, 14 fossa). He continued on Eligard; however, his PSA started to rise in 12/2015 (testosterone 29 on 09/26/2015). He remained on single agent Zoladex until he started Zytiga/prednisone on 11/04/2016, when he had evidence of bone progression. Remained on Zytiga/Pred until bone scan on 02/2018 showed interval increased intensity with new focal uptake in the manubrium. Started next line treatment with Xofigo on 12/24/2017. At his most recent visit at [facility] on 07/05/2018 he was noted to have progression of disease from scans on 06/06/2018 with progressive soft tissue disease as well as concerning bladder wall/sigmoid colon thickening of uncertain etiology, new mild left hydronephrosis and new pleural nodular thickening in the posterior right lung base. He underwent a colonoscopy on 06/20/2018, however, prep for colonoscopy was unsatisfactory and he was planned for a repeat colonoscopy as soon as possible. He was planned to hold on further prostate cancer treatment while undergoing evaluation of new radiographic findings and plan to return to clinic after colonoscopy to discuss future treatment plan. On 07/19/2018 he underwent repeat colonoscopy, colonoscopy report from [facility] reveals examined portion of the ileum was normal, 1 polyp at the ileocecal valve, one 10 mm polyp in the descending colon, moderate diverticulosis in the sigmoid colon, vascular area with scattered AV malformations in the mucosa and the rectum likely due to history of radiation to the prostate, examination was otherwise normal, biopsies were taken for evaluation of microscopic colitis. Pathology reveals descending polyp with low-grade dysplasia (tubular adenoma) one side in features of a h yperplastic polyp with dysplasia on the other, likely represents a mixed tubular adenoma and hyperplastic polyp rather than sessile serrated adenoma with low- grade dysplasia. Colonic mucosa without significant pathologic alteration. Most recent PSA from [facility] was 59.55 on 07/05/2018. Past Med Surg Social Fam HX - Past Medical History Medical history: cancer, hypertension, other Additional medical history: prostate surgery Psychiatric history: no psych history - Past Surgical History Additional surgical history: L ankle surgery - Social History Smoking Status: Current every day smoker Alcohol use: rarely Drug use: none Medications and Allergies Calcium Carbonate/Vitamin D3 [Calcium 600-Vit D3 400 Tablet] 1 tab PO DAILY 08/16/18 [History] Losartan/Hydrochlorothiazide [Losartan-Hctz 50-12.5 mg Tab] 1 tab PO DAILY 08/16/18 [History] Allergy/AdvReac Type Severity Reaction Status Date / Time latex AdvReac Rash Verified 08/16/18 13:14 Constitutional: Present: as per HPI, anorexia, fatigue. Absent: chills, fever(s), frequent falls, headache(s), night sweats, weakness, weight loss Eyes: Absent: change in vision Nose, mouth and throat: Absent: dysphagia Cardiovascular: Absent: chest pain, palpitations Respiratory: Present: dyspnea on exertion. Absent: cough Gastrointestinal: Absent: abdominal pain, hematemesis, hematochezia, melena, nausea, vomiting Genitourinary: Present: as per HPI, flank pain (left), hematuria. Absent: dysuria Additional comments: LLE pain secondary to edema, denies pain with ambulation Integumentary: Absent: rash, wounds Neurological: Absent: dizziness, focal weakness, frequent falls Hematologic/Lymphatic: Present: as per HPI Oncology - Exam - Constitutional General appearance: cooperative, no acute distress, no febrile - Head Head exam: Present: atraumatic - ENT ENT exam: Present: mucous membranes moist, normal oropharynx - Respiratory Respiratory exam: Present: CTAB. Absent: respiratory distress - Cardiovascular Cardiovascular exam: Present: RRR, +S1, +S2 - GI/Abdominal GI/Abdominal exam: Present: normal bowel sounds, soft. Absent: tenderness - Extremities Exam Additional comments: Significant pitting LLE extending into left thigh - Neurological Exam Neurological exam: Present: alert, oriented X3, no focal deficits, strengths equal and symetr throughout - Psychiatric Psychiatric exam: Present: normal affect, normal mood - Skin Skin exam: Present: dry, intact, normal color, warm Consult Discharge Plan - Plan Referrals: Fanny Malone CNP [Primary Care Provider] - Inpatient Charges Provider: Dr. Mireya Koenig <Luis Koenig - Last Filed: 08/17/18 22:02> Date of Encounter: 08/17/18 - Data of Consult Requesting Physician: Carolee Miller Primary Care Provider: Fanny Malone CNP - Attending Attestation I have seen and examined Mr. Durham and agree with Ms. Stevens's assessment. Unfortunately, he has progressive metastatic prostate adenocarcinoma with extensive hiwot and bone-based disease. PSA is 115. Personally reviewed imaging and [facility] records as patient is an existing patient of Dr. Farah at [facility]. D/W Dr. Farah as well. Patient desires to transition care to [place], and I discussed using docetaxel moving forward. First. we will have to address his sclerotic left femur. He has hyponatremia secondary to his prostate cancer. He has no neurologic symptoms after correction. From our perspective, he may be d/c to home. F/u with me next week as well as rad/onc. We will otherwise sign off. Inpatient Charges Provider: Dr. Mireya Koenig Consult - Inpatient: [id number]
[2018-08-18 05:18] LABS: Basophils % 0.9 %; Eosinophils # 0.1 K/mcL (0.0-0.6); Hematocrit 35.7 % (37.5-50.1); Hemoglobin 12.4 g/dL (12.9-16.9); Immature Granulocytes % 0.7 % (0-4); Lymphocytes # 0.3 K/mcL (0.6-4.6); Lymphocytes % 6.7 %; Mean Corpuscular HGB Conc 34.7 g/dL (31.6-35.5); Mean Corpuscular Hemoglobin 33.2 pg (28.0-33.3); Mean Corpuscular Volume 95.7 fL (83.0-100.0); Mean Platelet Volume 9.7 fL (9.4-12.4); Monocytes # 0.5 K/mcL (0.0-1.3); Monocytes % 12.1 %; Neutrophils # 3.5 K/mcL (1.6-8.9); Platelet Count 201 K/mcL (140-400); Red Blood Count 3.73 M/mcL (4.19-5.50); Red Cell Distribution Width 12.1 % (11.5-14.5); Segmented Neutrophils % 77.6 %
[2018-08-18 05:33] LABS: BUN/Creatinine Ratio 13 (6-26); Blood Urea Nitrogen 12 mg/dL (6-20); Calcium 8.9 mg/dL (8.6-10.3); Carbon Dioxide 28 mEq/L (23-29); Chloride 96 mEq/L (98-107); Glucose 91 mg/dL (70-105); Osmolality,Calculated 273 (280-300); Potassium 3.6 mEq/L (3.5-5.1); Sodium 132 mEq/L (136-145); eGFR For Non-African Americans > 60 (> 60)
--- NOTE | 2018-08-18 08:03 | Discharge Summary ---
<Carolee Miller - Last Filed: 08/18/18 13:32> - NOTES TO OUTPATIENT PROVIDER Notes to Outpatient Provider: He is now established with [facility] for outpt management. Urology team is available to him if he develops need for nephrostomy tubes. Please monitor creat, normal at dc, as this would warrant urology referral if abnormal and given known hydropnephrosis. In regards to his low sodium, baseline is uk to us, but level bulmaro to 132 on discharge and requires further outpt monitoring. suspected siadh, possible related to amount of beer he drinks daily and presumed chronic in nature without any neuro deficits throughout admit Orders not resulted at time of discharge: Pending orders 08/17/18 18:53 Osmolality,Urine [UCHEM] Routine Sodium, Urine [UCHEM] Routine Date of Encounter: 08/18/18 - Discharge Diagnosis (1) Bladder cancer metastasized to bone Status: Acute (2) Edema of left lower extremity Status: Acute (3) HTN (hypertension) Status: Chronic Qualifiers: Hypertension type: essential hypertension Qualified Code(s): I10 - E ssential (primary) hypertension (4) Hyponatremia Status: Acute (5) Tobacco dependence Status: Chronic Hospital course: Mr. Durham is a 58 year old male - Time Spent with Patient Total time spent providing and/or coordinating discharge services: Greater than 30 minutes (40 min) - Discharge Medications Home Medications: Calcium Carbonate/Vitamin D3 [Calcium 600-Vit D3 400 Tablet] 1 tab PO DAILY 08/16/18 [History] Losartan/Hydrochlorothiazide [Losartan-Hctz 50-12.5 mg Tab] 1 tab PO DAILY 08/16/18 [History] Allergies/Adverse Reactions: Allergy/AdvReac Type Severity Reaction Status Date / Time latex AdvReac Rash Verified 08/16/18 13:14 Date of admission: 08/16/18 18:43 Primary care physician: Fanny Malone CNP Consults: 08/16/18 18:33 Consult to Oncology [CONS] Routine Consulting Provider: [facility] Reason for Consult: bladder cancer, new dx Call Completed: Yes Consult to Urology [CONS] Routine Consulting Provider: [facility] Reason for Consult: bladder cancer, bl hydronephrosis Call Completed: Yes 08/17/18 08:45 Consult to Oncology Radiation [CONS] Routine Consulting Provider: [facility] Reason for Consult: sclerotic area within the proximal left femur with avascular necrosis Call Completed: Yes - Constitutional Vitals: Temp Pulse Resp BP Pulse Ox 98.1 F 60 16 131/63 97 08/18/18 10:36 08/18/18 10:36 08/18/18 10:36 08/18/18 10:36 08/18/18 10:36 - Patient Status Disposition: Home, Self-Care Condition: Good Overall status at discharge: patient is not back to baseline - Discharge Instructions Follow Up With: Beto Crawford MD [Partnered Physician] - 08/19/18 1:30 pm Luis Koenig MD [Partnered Physician] - 08/23/18 1:30 pm Fanny Malone CNP [Primary Care Provider] - (Office will call with date and time of appointment. Thank you) Additional Instructions: Follow-up outpatient with radiation tomorrow. Follow-up with Dr. Koenig at the medical oncology office next week. - Diet and Activity Diet: other (2L daily fluid restriction) - Attending Attestation Mr Durham was admitted with LLE edema and hematuria, and subsequently found to have metastatic bladder cancer, with known hx aggressive prostate cancer. He opted to be seen locally by our [facility] team as opposed to transfer to [facility] where he has established Oncology care. He was seen in eval by both oncology and urology this admission. He is being discharged to home with radiation oncology appt this this week and outpt oncology follow up for further management/testing. He did not require urology intervention for hydronephrosis but does require outpt creat follow up and urology can see him as needed outpt should he require nephrostomy tube placement He was incidentally found to have hyponatremia, work up suggesting SIADH, however he also has daily heavy beer use and appeared hypovolemic on admit, responding to gentle IVFs. He displayed no cognitive deficits or neuro deficits throughout admit. He is recommended a fluid restricted diet on dc and cessation of beer use. Given his stability and normal mental status he will be referred to his pcp for further work up and monitoring. awake, alert, no pain in leg or elsewhere. no confusion or lethargy. feeling baseline and eager for dc to home gen- alert, awake,appears stated age cv- reg rate and rhythm, normal s1,s2, no murmurs appreciated, non pitting edema LLE to thigh lungs- ctabl, no wheezing, rhonchi or crackles, normal resp effort on ra abd- soft, non tender, non distended, + bs, no appreciable masses neuro- AAOx3, CN grossly intact, no focal deficits, no hand tremor 2/2 Bladder cancer with LAD compressing L Iliac vein -no DVT -femur xr no identifiable fracture -oupt oncology fu and rad onc follow up are in place New diagnosis bladder cancer with mets to bone and inguinal retroperitoneal and pelvic LAD with compression of left iliac vein -femur xr no pathologic fx, + avc necrosis left femoral head without subchondral articular collapse -ct a/p with extensive mets to pelvic, inguinal, retroperitoneal LAD, multiple osseous lesions and intra musclular lesions LLE -Moderate BL hydronephrosis due to mass effect on ureters--d/w urology no need for urgent nephrosotomy tubes at this time, requires outpt creat check and further outpt intervention as needed -CT chest numerous nodes/mets to bone -Lumbar XR- T11 lesion, no fractures -oncology has arranged outpt appts as above HTN- resume home losartan, creat monitoring as above Hyponatremia,likely 2/2 SIADH perhaps related to lung findings, probably ocmplicated by daily beer use, improved Na 123 without any cognitive deficits on admit, he corrected to 132 which was just above goal for 24 hrs, received 250 cc D5W, was kept overnight last night for close monitoring and has stable na today na 132 on dc, rec for fluid restriciton on dc, outpt pcp fu daily etoh use- ciwa w/o s/s of withdrawal this admit further diagnoses and treatment as documented by resident <Anais Moreno - Last Filed: 08/18/18 14:29> - NOTES TO OUTPATIENT PROVIDER Notes to Outpatient Provider: Admitted with LLE edema and hematuria, and subsequently found to have metastatic bladder cancer, with known hx prostate cancer. He opted to be seen locally by our [facility] team as opposed to transfer to [facility] where he has established Oncology care. He was seen in eval by both oncology and urology this admission. He is being discharged to home with radiation appt tomrrow. F/U with Dr. Koenig at oncology appt next week. He was to have hyponatremia that is urine studies demonstrated this is most likely secondary to SIADH. He needs follow-up on SIADH. Orders not resulted at time of discharge: Pending orders 08/17/18 18:53 Osmolality,Urine [UCHEM] Routine Sodium, Urine [UCHEM] Routine Date of Encounter: 08/18/18 Time of Encounter: 08:03 - Discharge Diagnosis (1) Bladder cancer metastasized to bone Priority: Primary Status: Acute (2) Edema of left lower extremity Priority: Secondary Status: Acute (3) HTN (hypertension) Priority: Secondary Status: Chronic Qualifiers: Hypertension type: essential hypertension Qualified Code(s): I10 - Essential (primary) hypertension (4) Hyponatremia Priority: Secondary Status: Acute (5) Tobacco dependence Priority: Secondary Status: Chronic Hospital course: Mr. Durham is a 58 year old male who presented to the ED on 08/16/18 with left LE edema that has worsened over the past 12 days, originally starting at his L ankle and now extending up to his L hip. He also complains of left LBP. He has a PMHx of HTN and prostate cancer that was diagnosed in 2013 for which [facility] treate d with radiation and medication. He states 2 weeks ago he had gross hematuria and was passing large clots. The patient had hyponatremia upon admission at a level of 123. He received NS IVFs overnight and had his sodium levels checked q4hrs for sodium overcorrecting. His current sodium level is 132, showing significant improvement. He also had his urine sodium and urine osmolality levels checked, w [facility] showed a urine sodium level of 65 and a urine osmolality of 503. SIADH with the suspected etiology of hyponatremia. With the patients LLE edema, he received PRN pain control. Oncology has been following. The patient received abdomen/pelvis CT, which showed primary bladder malignancy w/ mets to surrounding structures including bone and intramuscular areas of his left leg, which causes compression of his left iliac vein, thus causing his present severe edema. It also showed bilateral hydronephrosis from mass effect from extension of the mets into the distal ureters. It also showed a R-sided pleural effusion. The patient received a femur X-ray that showed an aggressive area of sclerosis within the proximal left femur, most likely from mets. It also showed avascular necrosis of the left femoral head. The patient received a chest CT w/o contrast which showed pulmonary nodules, mediastinal and R hilar lymphadenopathy, a sternal lesion, and a R proximal humeral sclerotic lesion, all likely from mets. It also showed a R-sided nonspecific pleural effusion. Patient received a lumbar X-ray showing a left T11 sclerotic lesion likely from mets. Patient also received a LE venous duplex exam, which resulted in a normal exam of the superficial and deep LLE. For the patients bladder cancer mets, urology was consulted and kept the patient NPO, and they consulted interventional radiology for a CT guided lymph node biopsy. Patient was asked if he wanted to be transferred to [facility] since this is where his original cancer treatment team, but he refused and said he wanted to see the oncology physicians at [facility]. Patient also had HTN upon admission, and his home losartan was held. His creatinine levels continued to be monitored w/ his hydronephrosis. The patient admitted to alcohol abuse, having 3-6 beers/day. There were no signs of alcohol withdrawal. CIWA was in place and Ativan was ordered. Patient will follow up outpatient with urology within a week of discharge. The patient will follow up with oncology outpatient and begin radiation tomorrow at the cancer center. Follow up w/ Dr. Koenig (oncologist) next week. 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 He was alert and oriented times 3 upon discharge. Discharge discussed with: patient, nurse - Time Spent with Patient Total time spent providing and/or coordinating discharge services: Greater than 30 minutes Date of admission: 08/16/18 18:43 Primary care physician: Fanny Malone CNP Consults: 08/16/18 18:33 Consult to Oncology [CONS] Routine Consulting Provider: [facility] Reason for Consult: bladder cancer, new dx Call Completed: Yes Consult to Urology [CONS] Routine Consulting Provider: [facility] Reason for Consult: bladder cancer, bl hydronephrosis Call Completed: Yes 08/17/18 08:45 Consult to Oncology Radiation [CONS] Routine Consulting Provider: [facility] Reason for Consult: sclerotic area within the proximal left femur with avascular necrosis Call Completed: Yes Discharging clinician: Carolee Miller Anticipated date of discharge: 08/18/18 - Constitutional Vitals: Temp Pulse Resp BP Pulse Ox 98.0 F 60 16 142/78 94 08/18/18 06:48 08/18/18 06:48 08/18/18 06:48 08/18/18 06:48 08/18/18 06:48 Exam: Gen.: Vitals noted. No acute distress. AAOx3 HEENT: oropharynx clear, Normocephalic, atraumatic Cardiac: RRR, no murmur, +S1/S2, left lower extremity edema Pulmonary: CTA bilaterally, no wheezes, rales or rhonchi, equal chest expansion Abdomen: soft, nontender, Bowel sounds noted, no guarding MSK: ROM intact Extremities: nontender right calf, no cyanosis or clubbing Neuro: A&Ox3, moves all extremities, no focal deficits Psych: Appropriate mood and behavior - Patient Status Functional capacity at discharge: independent ambulation Overall status at discharge: patient is back to baseline - Diet and Activity Activity: increase activity as tolerated, resume usual activities as tolerated Diet: advance to your usual diet
--- NOTE | 2018-08-18 08:54 | Urology Progress Note ---
<Kamryn Mcallister N - Last Filed: 08/18/18 08:52> Date of Encounter: 08/18/18 Time of Encounter: 08:25 - Assessment and Plan (1) Prostate cancer metastatic to bone Status: Acute Assessment and plan: Patient is a 58-year-old male who presents with widespread metastatic disease from prostate cancer. Patient was diagnosed with a very aggressive Barbara 9 prostate cancer 4 years ago and has undergone prostatectomy, radiation, and radium 223 infusion at [facility]. PSA continues to rise rapidly. Patient is planning to follow-up with [place] [facility] within 1 week of discharge and begin Docetaxel. (2) Hydronephrosis Status: Acute Assessment and plan: Patient is a 58-year-old male who presents with a history of mild to moderate hydronephrosis. Currently, patient's renal function is well within normal range. We will continue to follow serum creatinine levels. If creatinine becomes elevated and renal damage is suspected, patient may proceed with nephrostomy tubes if he desires. Qualifiers: Hydronephrosis type: other Qualified Code(s): N13.39 - Other hydronephrosis Progress Note Subjective: no new complaints Narrative: Patient seen and examined lying in bed in no apparent distress. Patient is voiding without difficulty and has no urologic concerns at this time. Objective Initial Vital Signs Temp Pulse Resp BP Pulse Ox 97.7 F 82 15 158/84 99 08/16/18 12:41 08/16/18 12:41 08/16/18 12:41 08/16/18 12:41 08/16/18 12:41 - General physical appearance Present: no distress, no pain, chronically ill - Respiratory Present: normal expansion, normal respiratory effort - Integumentary Present: no rash, no abnormal pigmentation - Psychiatric Present: oriented to time, oriented to person, oriented to place, speech is normal, memory intact - Labs 08/18/18 03:28 08/18/18 03:28 Diabetes panel 08/17/18 08/17/18 08/17/18 Range/Units 08:03 13:46 16:09 Sodium 130 L 132 L 130 L (136-145) mEq/L Potassium (3.5-5.1) mEq/L Chloride (98-107) mEq/L Carbon Dioxide (23-29) mEq/L BUN (6-20) mg/dL Creatinine (0.70-1.30) mg/dL Glucose (70-105) mg/dL Calcium (8.6-10.3) mg/dL 08/17/18 08/18/18 08/18/18 Range/Units 19:54 00:15 03:28 Sodium 130 L 131 L 132 L (136-145) mEq/L Potassium 3.6 (3.5-5.1) mEq/L Chloride 96 L (98-107) mEq/L Carbon Dioxide 28 (23-29) mEq/L BUN 12 (6-20) mg/dL Creatinine 0.91 (0.70-1.30) mg/dL Glucose 91 (70-105) mg/dL Calcium 8.9 (8.6-10.3) mg/dL Calcium panel 08/18/18 Range/Units 03:28 Calcium 8.9 (8.6-10.3) mg/dL Pituitary panel 08/17/18 08/17/18 08/17/18 Range/Units 08:03 13:46 16:09 Sodium 130 L 132 L 130 L (136-145) mEq/L Potassium (3.5-5.1) mEq/L Chloride (98-107) mEq/L Carbon Dioxide (23-29) mEq/L BUN (6-20) mg/dL Creatinine (0.70-1.30) mg/dL Glucose (70-105) mg/dL Calcium (8.6-10.3) mg/dL 08/17/18 08/18/18 08/18/18 Range/Units 19:54 00:15 03:28 Sodium 130 L 131 L 132 L (136-145) mEq/L Potassium 3.6 (3.5-5.1) mEq/L Chloride 96 L (98-107) mEq/L Carbon Dioxide 28 (23-29) mEq/L BUN 12 (6-20) mg/dL Creatinine 0.91 (0.70-1.30) mg/dL Glucose 91 (70-105) mg/dL Calcium 8.9 (8.6-10.3) mg/dL Adrenal panel 08/17/18 08/17/18 08/17/18 Range/Units 08:03 13:46 16:09 Sodium 130 L 132 L 130 L (136-145) mEq/L Potassium (3.5-5.1) mEq/L Chloride (98-107) mEq/L Carbon Dioxide (23-29) mEq/L BUN (6-20) mg/dL Creatinine (0.70-1.30) mg/dL Glucose (70-105) mg/dL Calcium (8.6-10.3) mg/dL 08/17/18 08/18/18 08/18/18 Range/Units 19:54 00:15 03:28 Sodium 130 L 131 L 132 L (136-145) mEq/L Potassium 3.6 (3.5-5.1) mEq/L Chloride 96 L (98-107) mEq/L Carbon Dioxide 28 (23-29) mEq/L BUN 12 (6-20) mg/dL Creatinine 0.91 (0.70-1.30) mg/dL Glucose 91 (70-105) mg/dL Calcium 8.9 (8.6-10.3) mg/dL Consult Discharge Plan - Plan Additional Instructions: Follow-up outpatient with radiation tomorrow. Follow-up with Dr. Koenig at the medical oncology office next week. Referrals: Beto Crawford MD [Partnered Physician] - 08/19/18 1:30 pm Luis Koenig MD [Partnered Physician] - 08/23/18 1:30 pm Fanny Malone CNP [Primary Care Provider] - (Office will call with date and time of appointment. Thank you) <Bk Hutton - Last Filed: 08/18/18 16:06> Date of Encounter: 08/18/18 - Assessment and Plan (1) Hydronephrosis Status: Acute Qualifiers: Hydronephrosis type: other Qualified Code(s): N13.39 - Other hydronephrosis (2) Bladder cancer metastasized to bone Status: Acute (3) Prostate cancer metastatic to bone Status: Acute Assessment and plan: Patient was seen and examined. I agree with plan as written by Kamryn Mcallister. Depending on how patient does with docetaxel patient may need bilateral nephrostomy tubes in the future. Objective Initial Vital Signs Temp Pulse Resp BP Pulse Ox 97.7 F 82 15 158/84 99 08/16/18 12:41 08/16/18 12:41 08/16/18 12:41 08/16/18 12:41 08/16/18 12:41 - Labs 08/18/18 03:28 08/18/18 03:28 Diabetes panel 08/17/18 08/17/18 08/18/18 Range/Units 16:09 19:54 00:15 Sodium 130 L 130 L 131 L (136-145) mEq/L Potassium (3.5-5.1) mEq/L Chloride (98-107) mEq/L Carbon Dioxide (23-29) mEq/L BUN (6-20) mg/dL Creatinine (0.70-1.30) mg/dL Glucose (70-105) mg/dL Calcium (8.6-10.3) mg/dL 08/18/18 Range/Units 03:28 Sodium 132 L (136-145) mEq/L Potassium 3.6 (3.5-5.1) mEq/L Chloride 96 L (98-107) mEq/L Carbon Dioxide 28 (23-29) mEq/L BUN 12 (6-20) mg/dL Creatinine 0.91 (0.70-1.30) mg/dL Glucose 91 (70-105) mg/dL Calcium 8.9 (8.6-10.3) mg/dL Calcium panel 08/18/18 Range/Units 03:28 Calcium 8.9 (8.6-10.3) mg/dL Pituitary panel 08/17/18 08/17/18 08/18/18 Range/Units 16:09 19:54 00:15 Sodium 130 L 130 L 131 L (136-145) mEq/L Potassium (3.5-5.1) mEq/L Chloride (98-107) mEq/L Carbon Dioxide (23-29) mEq/L BUN (6-20) mg/dL Creatinine (0.70-1.30) mg/dL Glucose (70-105) mg/dL Calcium (8.6-10.3) mg/dL 08/18/18 Range/Units 03:28 Sodium 132 L (136-145) mEq/L Potassium 3.6 (3.5-5.1) mEq/L Chloride 96 L (98-107) mEq/L Carbon Dioxide 28 (23-29) mEq/L BUN 12 (6-20) mg/dL Creatinine 0.91 (0.70-1.30) mg/dL Glucose 91 (70-105) mg/dL Calcium 8.9 (8.6-10.3) mg/dL Adrenal panel 08/17/18 08/17/18 08/18/18 Range/Units 16:09 19:54 00:15 Sodium 130 L 130 L 131 L (136-145) mEq/L Potassium (3.5-5.1) mEq/L Chloride (98-107) mEq/L Carbon Dioxide (23-29) mEq/L BUN (6-20) mg/dL Creatinine (0.70-1.30) mg/dL Glucose (70-105) mg/dL Calcium (8.6-10.3) mg/dL 08/18/18 Range/Units 03:28 Sodium 132 L (136-145) mEq/L Potassium 3.6 (3.5-5.1) mEq/L Chloride 96 L (98-107) mEq/L Carbon Dioxide 28 (23-29) mEq/L BUN 12 (6-20) mg/dL Creatinine 0.91 (0.70-1.30) mg/dL Glucose 91 (70-105) mg/dL Calcium 8.9 (8.6-10.3) mg/dL
[2018-08-18 10:39] VITALS: BP 131/63
== END 2018-08-18 13:14 | disposition home or self-care (01) ==
LOC: EMEROOARM 12:39 → 3ANU 12:39 → SUATTDRO 18:43 → 3ANU 19:30
PROVIDERS: ADMIT Internal Medicine Cardiovascular Disease; ATTEND Internal Medicine

== ENCOUNTER 2019-02-06 22:39 | Inpatient (IN) ==
[2019-02-06] MEDS ORDERED: Ondansetron 4 MG/2 ML VIAL IVP ONE (22:58)
[2019-02-06] MEDS ORDERED: 0.9 % Sodium Chloride 500 ML IVC ONE (22:58)
--- NOTE | 2019-02-06 23:03 | Emergency Department Note ---
Disposition Clinical Impression: Prostate cancer Disposition: Admitted As Inpatient Condition: Fair Referrals: NONE,PCP [Primary Care Provider] - Forms: ED Satisfaction Letter, Work/School Release Time of Disposition: 00:11 General Adult HPI - General Chief complaint: ED General Medical Stated complaint: NV Time Seen by Provider: 02/06/19 22:46 Source: patient Limitations: no limitations Nursing Notes Reviewed: Yes Vital Signs Reviewed: Yes - History of Present Illness HPI Narrative: 38-year-old male long-time smoker no formal diagnosis of COPD presents with nausea and vomiting for several days and fatigue. Patient has prostate cancer is being treated by Dr. Koenig from oncology at [facility]. Patient had radiation therapy several weeks ago and is currently on chemotherapy round 5 last time was 2 weeks ago. Patient says for the past several days been having burning urination and coughing up some sputum which is yellow but he says it is baseline patient denies chest pain or shortness of breath he appears a little pallor and fatigued his is here and states this is more than he usually is. Patient is undergoing contacts exotic food recent travel or medication changes. Here for further evaluation. Pain Scale: 7 - Related Data Home Medications Medication Instructions Recorded Confirmed Calcium Carbonate/Vitamin D3 1 tab PO DAILY 08/16/18 01/25/19 [Calcium 600-Vit D3 400 Tablet] Losartan [Cozaar] 25 mg PO DAILY 08/23/18 01/25/19 hydroCHLOROthiazide 12.5 mg PO DAILY 12/19/18 01/25/19 [Hydrochlorothiazide] Previous Rx's Medication Instructions Recorded predniSONE [PredniSONE] 5 mg PO DAILY #30 tablet 12/14/18 Mirtazapine [Remeron] 30 mg PO HS #30 tablet 01/25/19 Olaparib [Lynparza] 300 mg PO BID #120 tablet 01/25/19 Oxycodone HCl/Acetaminophen 1 each PO Q6H PRN 30 Days #120 01/25/19 [Percocet 10-325 mg Tablet] tablet Allergies Allergy/AdvReac Type Severity Reaction Status Date / Time lanolin Allergy See Verified 02/06/19 22:40 Comments latex AdvReac Rash Verified 02/06/19 22:40 All systems ED: reviewed and negative except as stated. Constitutional: Reports: weakness Respiratory: Reports: cough, sputum production Gastrointestinal: Reports: nausea, vomiting Genitourinary: Reports: dysuria Past Medical History - Past Medical History Attestation: Yes The following information was validated with the patient. Source: patient Medical history: Reports: cancer, COPD, hypertension, other Surgical history: Reports: appendectomy, orthopedic, other, prostatectomy, other Psychiatric history: Reports: no psych history - Social History Smoking Status: Former smoker Smokeless Tobacco Status: No Alcohol use: Reports: none Drug use: Reports: marijuana Physical Exam - General Limitations: no limitations General appearance: alert, cachectic, other (Pale) - Head Head exam: atraumatic, normocephalic - Eye Eye exam: Present: normal appearance, PERRL, EOMI - ENT ENT exam: normal exam, normal oropharynx, mucous membranes dry - Neck Neck exam: Present: normal inspection, full ROM - Chest Chest inspection: Present: normal inspection, symmetric chest wall rise - Respiratory Respiratory exam: Present: normal lung sounds bilaterally - Cardiovascular Cardiovascular exam: Present: normal rhythm, tachycardia - Abdominal Exam Abdominal exam: Present: soft, Non-Tender - Extremities Exam Extremities exam: Present: pedal edema (Patient says he has chronic lymphedema and lower extremities this is not new) - Expanded Lower Extremity Exam Neurovascular/Tendon exam: Present: normal capillary refill Gait: observed and normal - Back Exam Back exam: Present: normal inspection, full ROM - Neurological Exam Neurological exam: Present: alert, oriented X3, CN II-XII intact - Psychiatric Psychiatric exam: Present: normal affect, normal mood - Skin Skin exam: Present: warm, dry, intact Course - Reevaluation(s) Reevaluation #1: ED workup is complete. CBC and chemistry panel essentially within normal limits her baseline. Troponin critically elevated 0.16 with a normal BUN/creatinine no prior history of coronary artery disease concerning for an STEMI. Chest x-ray shows possible sclerotic lesion on the humerus possible metastatic from his prostate cancer. No acute infiltrate. On the chest x-ray. Patient will be admitted to the hospitalist Dr. Almeida. We will place cardiology consult and do ACS dose heparin. Providing 45 minutes critical care service for this patient Time: 00:11 Vital Signs Temperature 98.1 F 02/06/19 22:40 Pulse Rate 109 02/06/19 22:40 Respiratory Rate 18 02/06/19 22:40 Blood Pressure 78/45 02/06/19 22:40 O2 Sat by Pulse Oximetry 94 02/06/19 22:40 Temperature 98.1 F 02/06/19 22:40 Pulse Rate 102 02/07/19 00:07 Respiratory Rate 18 02/07/19 00:07 Blood Pressure 101/59 02/07/19 00:07 O2 Sat by Pulse Oximetry 97 02/07/19 00:07 Oxygen Delivery Oxygen Delivery Room Air Medical Decision Making - Medical Records Medical records reviewed: Yes I reviewed the patient's medical records. - Lab Data Lab results reviewed: Yes I reviewed the patient's lab results. Result diagrams: 02/06/19 23:00 02/06/19 23:00 Lab Results 02/06/19 02/06/19 02/06/19 Range/Units 23:00 23:00 23:00 WBC (4.3-11.1) K/mcL RBC (4.19-5.50) M/mcL Hgb (12.9-16.9) g/dL Hct (37.5-50.1) % MCV (83.0-100.0) fL MCH (28.0-33.3) pg MCHC (31.6-35.5) g/dL RDW (11.5-14.5) % Plt Count (140-400) K/mcL MPV (9.4-12.4) fL Immature Gran % (0-4) % Seg Neutrophils % % Lymphocytes % % Monocytes % % Eosinophils % % Basophils % % Neutrophils # (1.6-8.9) K/mcL Lymphocytes # (0.6-4.6) K/mcL Monocytes # (0.0-1.3) K/mcL Eosinophils # (0.0-0.6) K/mcL Basophils # (0.0-0.2) K/mcL PT 13.9 H (9.4-12.1) Seconds INR 1.2 APTT 28.3 (26.0-36.0) Seconds Sodium (136-145) mEq/L Potassium (3.5-5.1) mEq/L Chloride (98-107) mEq/L Carbon Dioxide (23-29) mEq/L BUN (6-20) mg/dL Creatinine (0.70-1.30) mg/dL Est GFR ( Amer) (> 60) Est GFR (Non-Af Amer) (> 60) BUN/Creatinine Ratio (6-26) Glucose (70-105) mg/dL Calculated Osmolality (280-300) Lactic Acid 1.9 (0.5-2.2) mmol/L Calcium (8.6-10.3) mg/dL Troponin I (< 0.04) ng/mL B-Natriuretic Peptide 46 (Less than 100) pg/mL 02/06/19 02/06/19 Range/Units 23:00 23:00 WBC 8.3 (4.3-11.1) K/mcL RBC 3.25 L (4.19-5.50) M/mcL Hgb 9.9 L (12.9-16.9) g/dL Hct 28.7 L (37.5-50.1) % MCV 88.3 (83.0-100.0) fL MCH 30.5 (28.0-33.3) pg MCHC 34.5 (31.6-35.5) g/dL RDW 20.8 H (11.5-14.5) % Plt Count 191 (140-400) K/mcL MPV 10.0 (9.4-12.4) fL Immature Gran % 1.1 (0-4) % Seg Neutrophils % 88.5 % Lymphocytes % 3.1 % Monocytes % 7.1 % Eosinophils % 0.1 % Basophils % 0.1 % Neutrophils # 7.4 (1.6-8.9) K/mcL Lymphocytes # 0.3 L (0.6-4.6) K/mcL Monocytes # 0.6 (0.0-1.3) K/mcL Eosinophils # 0.0 (0.0-0.6) K/mcL Basophils # 0.0 (0.0-0.2) K/mcL PT (9.4-12.1) Seconds INR APTT (26.0-36.0) Seconds Sodium 130 L (136-145) mEq/L Potassium 4.0 (3.5-5.1) mEq/L Chloride 96 L (98-107) mEq/L Carbon Dioxide 23 (23-29) mEq/L BUN 40 H (6-20) mg/dL Creatinine 1.28 (0.70-1.30) mg/dL Est GFR ( Amer) > 60 (> 60) Est GFR (Non-Af Amer) 58 L (> 60) BUN/Creatinine Ratio 31 H (6-26) Glucose 107 H (70-105) mg/dL Calculated Osmolality 280 (280-300) Lactic Acid (0.5-2.2) mmol/L Calcium 8.4 L (8.6-10.3) mg/dL Troponin I 0.16 H* (< 0.04) ng/mL B-Natriuretic Peptide (Less than 100) pg/mL - Radiology Data Radiology results reviewed: Yes I reviewed the patient's radiology results. - EKG Data EKG #1 EKG attestation: Yes I reviewed and interpreted this EKG. EKG results narrative: EKG interpreted without the benefit Cardiologic assistance shows sinus tachycardia at 105 bpm normal OR QRS and QT corrected. There appears to be wide spread of global T-wave inversions in lead to 3 aVF and V2 through V6 is new compared to prior EKG dated 12/07/2018.
[2019-02-06 23:22] LABS: Basophils % 0.1 %; Eosinophils % 0.1 %; Hematocrit 28.7 % (37.5-50.1); Hemoglobin 9.9 g/dL (12.9-16.9); Immature Granulocytes % 1.1 % (0-4); Lymphocytes # 0.3 K/mcL (0.6-4.6); Lymphocytes % 3.1 %; Mean Corpuscular HGB Conc 34.5 g/dL (31.6-35.5); Mean Corpuscular Hemoglobin 30.5 pg (28.0-33.3); Mean Corpuscular Volume 88.3 fL (83.0-100.0); Monocytes # 0.6 K/mcL (0.0-1.3); Monocytes % 7.1 %; Neutrophils # 7.4 K/mcL (1.6-8.9); Platelet Count 191 K/mcL (140-400); Red Blood Count 3.25 M/mcL (4.19-5.50); Red Cell Distribution Width 20.8 % (11.5-14.5); Segmented Neutrophils % 88.5 %
[2019-02-06 23:30] LABS: INR 1.2; Prothrombin Time 13.9 Seconds (9.4-12.1)
[2019-02-06 23:33] LABS: Activated Partial Thrombo Time 28.3 Seconds (26.0-36.0)
[2019-02-06 23:43] LABS: BUN/Creatinine Ratio 31 (6-26); Blood Urea Nitrogen 40 mg/dL (6-20); Calcium 8.4 mg/dL (8.6-10.3); Carbon Dioxide 23 mEq/L (23-29); Chloride 96 mEq/L (98-107); Glucose 107 mg/dL (70-105); Osmolality,Calculated 280 (280-300); Sodium 130 mEq/L (136-145); eGFR For Non-African Americans 58 (> 60)
[2019-02-06 23:49] LABS: Troponin I 0.16 ng/mL (< 0.04)
[2019-02-07] MEDS ORDERED: Aspirin 325 MG TABLET PO ONE (00:01)
[2019-02-07] MEDS ORDERED: *HR* Heparin 5,000 UNIT/ML VIAL IVP ONE (00:26)
[2019-02-07] MEDS ORDERED: *HR* Heparin 5,000 UNIT/ML VIAL IVP PRN ×2 (00:26)
[2019-02-07] MEDS ORDERED: Heparin 25,000 UNIT/250 ML D5W 25,000 UNIT/250 ML IV.SOLN IVC SCH (00:30)
[2019-02-07 01:12] LABS: Hematocrit 24.7 % (37.5-50.1); Hemoglobin 8.5 g/dL (12.9-16.9); Mean Corpuscular HGB Conc 34.4 g/dL (31.6-35.5); Mean Corpuscular Hemoglobin 30.2 pg (28.0-33.3); Mean Corpuscular Volume 87.9 fL (83.0-100.0); Mean Platelet Volume 9.7 fL (9.4-12.4); Platelet Count 162 K/mcL (140-400); Red Blood Count 2.81 M/mcL (4.19-5.50); Red Cell Distribution Width 20.5 % (11.5-14.5)
[2019-02-07 01:21] LABS: INR 1.2; Prothrombin Time 13.7 Seconds (9.4-12.1)
[2019-02-07 01:31] LABS: Bilirubin,Urine Negative (Negative); Blood,Urine Large (Negative); Clarity,Urine Turbid (Clear); Color,Urine Yellow (Yellow); Glucose,Urine (UA) Normal (Normal); Ketones,Urine Trace mg/dL (Negative); Leukocyte Esterase,Urine Large (Negative); Nitrite,Urine Negative (Negative); Protein,Urine 100 mg/dL (Neg-Trace); Specific Gravity,Urine 1.009 (1.010-1.025); Urobilinogen,Urine Normal (Normal)
[2019-02-07 01:32] LABS: Bacteria,Urine Many per hpf (None-Few); Hyaline Casts,Urine None Seen per lpf (None-Few); RBC,Urine TNTC per hpf (0-3); Squamous Epithelial Cell,Urine Many per lpf (None-Few); WBC,Urine TNTC per hpf (0-3)
[2019-02-07] MEDS ORDERED: *HR* OxyCODONE/APAP 10/325 TABLET PO PRN (02:15)
[2019-02-07] MEDS ORDERED: Ondansetron 4 MG/2 ML VIAL IVP PRN (02:18)
[2019-02-07] MEDS ORDERED: 0.9 % Sodium Chloride 1,000 ML IVC ONE (02:18)
[2019-02-07] MEDS ORDERED: Mag Hydrox/Al Hydrox/Simeth 30 ML UDC PO PRN (02:20)
--- NOTE | 2019-02-07 02:45 | Internal Med History&Physical ---
Date of Encounter: 02/07/19 Time of Encounter: 02:43 Internal Medicine - H&P: HPI Chief complaint: malaise Admitted From: Home Plans for Post Hospital Care: Hospice - Medical Facility History of present illness: Rafita Durham is a 58-year-old man with metastatic castrate resistant prostate adenocarcinoma who underwent robotic-assisted radical prostatectomy and lymph node dissection in 2014 and has been on chemotherapy over the last 2 years but noted to have ongoing progression of recent. As per clinic notes he has been progressively become more fatigued and tired with the worsening general clinical status that is in tandem with progressive metastatic lesions. He presents to the emergency room today with similar complaints reporting a decline in his appetite, feeling lousy, nausea and diarrhea with generalized malaise. Denies chest pain and abdominal pain specifically. He denies having fever but does say he occasionally feels cold. In the ER lab work revealed sodium of 130, chloride 96 and troponin 0.16 although there are no concerning electrocardiographic changes or clinical symptoms in conjunction with this. Anemia is equally present and his UA is concern for an infection. He was hy potensive and tachycardic on arrival and received 1 L of normal saline. He is now admitted for further care. Family history reviewed and found non- contributory. Vitals: Reviewed General: Emaciated appearing man, NAD, poor muscle mass. Skin: Warm, dry, pale. HEENT: Dry mucous membranes. (+) conjunctivae pallor. Neck: No JVD. No carotid bruits. No palpable thyroid. Chest: Normal thoracic expansion. Normal breath sounds. Clear to auscultation. Heart: Normal S1 & S2; rhythmic. No rubs or murmurs. Abdomen: Non-distended, soft and non-tender to palpation. No peritoneal reaction. Extremities: No clubbing or cyanosis. 2+ pedal or edema. No calf tenderness. Normal distal pulses. Neurological: Awake, alert and oriented to person, place and time. No focal deficits. Psych: Affect appropriate. Assessment/Plan 1. Generalized malaise: Likely secondary to progressive malignant disease. He will benefit from palliative care services for assistance with his ongoing care. Will also consult nutrition for oral supplemental. Other potential causes include side effects from his recent chemotherapy and/or infection. 2. Dehydration: notable on physical exam and seems secondary to decreased oral intake. Will provide IV NS to correct his hyponatremia and hypochloremia which may be hypovolemic in etiology however seeing that it is not a new finding, it is plausible he may have a component of SIADH from his metastatic disease. 3. Abnormal UA: The urine was notably turbid with large LE, nitrite + and pyuria. Given his genitourinary manipulations and immunosuppression, will start empiric abx with ceftriaxone and await culture data. UTI may be a potential factor in his declined state as well. 4. Elevated troponin: No clinical or electrocardiographic features consistent with ACS. Unclear if this is secondary to his current poor clinical condition. Will hold off on continuing heparin and simply trend the levels. Will also get a TTE for structural assessment. 5. Anemia: Likely secondary to chronic disease in conjunction with iron deficiency. Oral supplements ordered. Past Med Surg Social Fam HX - Past Medical History Medical history: cancer, COPD, hypertension, other Additional medical history: prostate cancer. hydronephrosis. anemia. smoking. low sodium Psychiatric history: no psych history - Past Surgical History Surgical History: appendectomy, orthopedic, other, prostatectomy, other Additional surgical history: broken leg. jaw broken - Social History Smoking Status: Former smoker Smokeless Tobacco Status: No Alcohol use: none Drug use: marijuana Internal Medicine - H&P: Meds Calcium Carbonate/Vitamin D3 [Calcium 600-Vit D3 400 Tablet] 1 tab PO DAILY 08/16/18 [History] Losartan [Cozaar] 25 mg PO DAILY 08/23/18 [History] predniSONE [PredniSONE] 5 mg PO DAILY #30 tablet 12/14/18 [Rx] hydroCHLOROthiazide [Hydrochlorothiazide] 12.5 mg PO DAILY 12/19/18 [History] Mirtazapine [Remeron] 30 mg PO HS #30 tablet 01/25/19 [Rx] Olaparib [Lynparza] 300 mg PO BID #120 tablet 01/25/19 [Rx] Oxycodone HCl/Acetaminophen [Percocet 10-325 mg Tablet] 1 each PO Q6H PRN 30 Days #120 tablet 01/25/19 [Rx] Allergy/AdvReac Type Severity Reaction Status Date / Time lanolin Allergy See Verified 02/06/19 22:40 Comments latex AdvReac Rash Verified 02/06/19 22:40 All Systems PM: A 10-system review of systems was performed and is negative for pertinent findings except as documented above in the HPI. - Constitutional Vitals: Temp Pulse Resp BP Pulse Ox 99.8 F H 104 14 88/55 95 02/07/19 02:29 02/07/19 02:29 02/07/19 02:29 02/07/19 02:29 02/07/19 02:29 Exam: . Internal Med - H&P Results - Labs CBC & Chem 7: 02/07/19 01:03 02/06/19 23:00 Labs: Short CBC 02/06/19 02/07/19 Range/Units 23:00 01:03 WBC 8.3 8.6 (4.3-11.1) K/mcL Hgb 9.9 L 8.5 L (12.9-16.9) g/dL Hct 28.7 L 24.7 L (37.5-50.1) % Plt Count 191 162 (140-400) K/mcL Neutrophils # 7.4 (1.6-8.9) K/mcL BMP 02/06/19 23:00 Sodium 130 L Potassium 4.0 Chloride 96 L Carbon Dioxide 23 BUN 40 H Creatinine 1.28 Glucose 107 H Calcium 8.4 L Cardiac Enzymes 02/06/19 Range/Units 23:00 Troponin I 0.16 H* (< 0.04) ng/mL Urine 02/07/19 Range/Units 01:25 Urine Color Yellow (Yellow) Urine Clarity Turbid A (Clear) Urine pH 8.0 (5.0-8.0) pH Units Ur Specific [place] 1.009 L (1.010-1.025) Urine Protein 100 H (Neg-Trace) mg/dL Urine Glucose (UA) Normal (Normal) mg/dL - Impressions ITS Impressions Chest X-Ray 02/06/19 22:58 IMPRESSION: 1. Bilateral pleural effusions with bibasilar airspace disease, most likely atelectasis. 2. Right perihilar and left upper lobe airspace disease could represent edema or pneumonia. 3. New sclerotic lesion in the proximal right humerus most likely represents metastatic prostate cancer. D/ / Michael Meehan MD / Michael Meehan MD Interpreting Provider: Michael Meehan MD - Time Spent With Patient Total time spent is greater than 50% in coordination of care (as documented) at patient's floor/unit and/or counseling patient: Greater than 35 minutes
[2019-02-07] MEDS: 0.9 % Sodium Chloride 1,000 ML IVC SCH ×2 (03:42→11:48)
[2019-02-07] MEDS ORDERED: cefTRIAXone 1,000 MG in Water for inj. (sterile) 20 ML 10 ML IVPB SCH (09:00)
[2019-02-07 09:07] LABS: BUN/Creatinine Ratio 30 (6-26); Blood Urea Nitrogen 40 mg/dL (6-20); Calcium 7.8 mg/dL (8.6-10.3); Carbon Dioxide 20 mEq/L (23-29); Chloride 100 mEq/L (98-107); Glucose 87 mg/dL (70-105); Osmolality,Calculated 273 (280-300); Potassium 3.6 mEq/L (3.5-5.1); Sodium 127 mEq/L (136-145); Troponin I 0.04 ng/mL (< 0.04); eGFR For Non-African Americans 56 (> 60)
[2019-02-07] MEDS: *HR* Heparin 5,000 UNIT/ML VIAL SQ SCH ×3 (10:25→21:26)
--- NOTE | 2019-02-07 11:03 | Electrocardiograph Report ---
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
--- NOTE | 2019-02-07 11:05 | Electrocardiograph Report ---
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
--- NOTE | 2019-02-07 12:24 | Event Note ---
Date of Encounter: 02/07/19 Time of Encounter: 12:16 I have seen and evaluate the patient at bedside. patient reported generalized body aches and weakness. denies shortness of breath, chest pain, nausea or vomiting. Physical exam: Vitals: Reviewed General: Alert and oriented x4. In moderated distress due to abdominal discomfort Skin: Normal color, no rash, no lesions. HEENT: dry mucus membrane, EOM, pupils equal, round and reactive. Cardiovascular: RRR, normal S1 & S2, no rubs, murmurs or gallops. Lungs: CTA, no wheezes or crackles. Abdomen:Soft, non-tender, no rigidity. Extremities: 2+ edema of the lower extre b/l Neurological: Normal cognition and motor skills. Rest of the physical exam is non contributory Assessment: 1. Sepsis 2. Pneumonia (suspected) 3. Metastatic, castrate resistant prostate adenocarcinoma. Pathologically there was seminal vesicle invasion as well as positive margins along the bladder neck. Progressive metastatic disease within the chest, abdomen, and pelvis. Multifocal metastatic bony lesions. 4. DIANN 5. VTE prophylaxis 6. Generalized weakness 7. UTI Plan will broaden antibiotics coverage. patient inmunocompromise. s/p chemotherapy 2 weeks ago discontinue Ceftriaxone will start patient on piperacillin/tazobactam 3.375mg/IV Q8HRs continue IV hydration with 0.9NS@125 ml/hr blood culture: no growth, pending final report chest CT for better visualization of lung parenchyma Palliative care consulted pain control with Percocet 10/325mg 1tab PO Q6HRs
[2019-02-07] MEDS ORDERED: Acetaminophen 325 MG TABLET PO PRN (12:33)
[2019-02-07] MEDS: Piperacillin/Tazobactam 3.375 GM in 0.9 % Sodium Chloride Mini Bag 100 ML IVPB SCH ×2 (15:09→21:25)
[2019-02-07] MEDS: Mirtazapine 15 MG TABLET PO SCH (21:25)
[2019-02-07 22:41] LABS: Hematocrit 25.2 % (37.5-50.1); Hemoglobin 8.7 g/dL (12.9-16.9)
[2019-02-08] MEDS: Piperacillin/Tazobactam 3.375 GM in 0.9 % Sodium Chloride Mini Bag 100 ML IVPB SCH ×3 (04:42→21:17)
[2019-02-08] MEDS: *HR* Heparin 5,000 UNIT/ML VIAL SQ SCH (06:12)
[2019-02-08 06:34] LABS: Basophils % 0.2 %; Hemoglobin 8.3 g/dL (12.9-16.9); Immature Granulocytes % 0.8 % (0-4); Lymphocytes # 0.3 K/mcL (0.6-4.6); Lymphocytes % 3.5 %; Mean Corpuscular HGB Conc 34.6 g/dL (31.6-35.5); Mean Corpuscular Volume 86.6 fL (83.0-100.0); Mean Platelet Volume 10.8 fL (9.4-12.4); Monocytes # 0.5 K/mcL (0.0-1.3); Neutrophils # 7.7 K/mcL (1.6-8.9); Platelet Count 138 K/mcL (140-400); Red Blood Count 2.77 M/mcL (4.19-5.50); Red Cell Distribution Width 20.6 % (11.5-14.5); Segmented Neutrophils % 89.5 %
[2019-02-08 06:55] LABS: BUN/Creatinine Ratio 32 (6-26); Blood Urea Nitrogen 43 mg/dL (6-20); Calcium 7.5 mg/dL (8.6-10.3); Carbon Dioxide 18 mEq/L (23-29); Chloride 99 mEq/L (98-107); Glucose 85 mg/dL (70-105); Magnesium 1.5 mg/dL (1.6-2.6); Osmolality,Calculated 276 (280-300); Phosphorous 1.9 mg/dL (2.7-4.5); Potassium 3.4 mEq/L (3.5-5.1); Sodium 128 mEq/L (136-145); eGFR For Non-African Americans 55 (> 60)
--- NOTE | 2019-02-08 07:13 | Event Note ---
Date of Encounter: 02/08/19 Time of Encounter: 02:00 Was contacted by nurse informing me that patient was having gross hematuria and clots emerging from his urine. Patient's chart was reviewed and a repeat hemoglobin was obtained which was found to be 8.7. Bladder scan was performed which showed a little greater than 200 mL of urine. No reports of pain the patient is subsequent he complained of discomfort in the suprapubic region. Given his history of radical prostatectomy in 2014 and uncertainty of current anatomy, recommended monitoring hemoglobin and supportive measures for now as opposed to insertion of Mcginnis and CBI. Recommend discussion with urology in the morning for further management moving forward.
--- NOTE | 2019-02-08 09:08 | Urology - Consult Note ---
<Kamryn Mcallister N - Last Filed: 02/08/19 09:06> Date of Encounter: 02/08/19 Time of Encounter: 09:06 - Assessment and Plan (1) Prostate cancer Current Visit: Yes Status: Acute Assessment and plan: Patient is a 58-year-old male who presents with a history of progressive, castrate resistant metastatic prostate cancer. PSA is rapidly increasing and is now 593. Patient is undergoing palliative chemotherapy and routinely follows with Dr. Koenig at [facility]. Medical oncology evaluation and recommendation is much appreciated. (2) Hematuria Current Visit: Yes Status: Acute Assessment and plan: Patient is a 58-year-old male who presents with metastatic prostate cancer gross hematuria. Preliminary urine culture is positive for gram-positive cocci. Patient is receiving IV Zosyn. We will await final culture and sensitivity. Patient reports dysuria and hematuria are improving. I explained if patient de velops clot retention, he may unavoidably require an indwelling Mcginnis catheter. Patient verbalizes understanding, and he wishes to continue IV hydration and antibiotics for now unless catheterization is absolutely necessary. Qualifiers: Hematuria type: gross Qualified Code(s): R31.0 - Gross hematuria (3) UTI (urinary tract infection) Current Visit: Yes Status: Acute Assessment and plan: Patient is a 58-year-old male who presents with a gram-positive cocci urinary tract infection. UTI could be contributing to gross hematuria. Vital signs are stable and afebrile, although, patient sustained a temperature to 100.3 yesterday. We will await final culture and sensitivity report and continue with IV antibiotic therapy. Qualifiers: Urinary tract infection type: acute cystitis Hematuria presence: with hematuria Qualified Code(s): N30.01 - Acute cystitis with hematuria Urology CN:HPI Consult date: 02/08/19 Reason for consult Urology: Gross Hematuria (metastatic prostate cancer) Requesting physician: Jackie Silvestre History of present illness: Patient is a 58-year-old male who presents with advancing, castrate resistant metastatic prostate cancer and gross hematuria. Patient is following with medical oncology and undergoing palliative chemotherapy. Most recent PSA on 01/25/2019 is 593, and PSA from 01/04/2019 was 495. Patient is status post robotic-assisted radical prostatectomy in 2014 with positive margins and seminal vesicle invasion. Postoperative PSA at that time was 2.49. Patient is also status post left antegrade nephrostogram, ureteral dilation and antegrade left ureteral stent placement by interventional radiology on 01/06/2019 for obstruction related to advancing prostate cancer. [facility] with complaints of increased fatigue, anorexia, nausea, vomiting and diarrhea. Patient's urinalysis was noted to be abnormal and was sent for culture. Preliminary urine culture is growing gram-positive cocci. Patient is also experiencing dysuria and gross hematuria. Patient denies any fever, chills or flank pain. Patient admits to a positive family history of prostate cancer through his paternal grandfather. Currently, patient is sitting upright in bed, and he reports feeling somewhat confused. Patient is experiencing difficulty in completing his thoughts and is complaining of worsening fatigue. Patient states hematuria and dysuria are improved, and he declines catheter placement at this time. Past Med Surg Social Fam HX - Past Medical History Medical history: cancer, COPD, hypertension, other Additional medical history: prostate cancer. hydronephrosis. anemia. smoking. low sodium Psychiatric history: no psych history - Past Surgical History Surgical History: appendectomy, orthopedic, other, prostatectomy, other Additional surgical history: broken leg. jaw broken - Social History Smoking Status: Former smoker Smokeless Tobacco Status: No Alcohol use: none Drug use: marijuana - Family History Mother Living Status: Cause of : Cancer Hx Family Cancer: Yes Father Living Status: Still Living Medications and Allergies Calcium Carbonate/Vitamin D3 [Calcium 600-Vit D3 400 Tablet] 1 tab PO DAILY 08/16/18 [History] Losartan [Cozaar] 25 mg PO DAILY 08/23/18 [History] predniSONE [PredniSONE] 5 mg PO DAILY #30 tablet 12/14/18 [Rx] hydroCHLOROthiazide [Hydrochlorothiazide] 12.5 mg PO DAILY 12/19/18 [History] Mirtazapine [Remeron] 30 mg PO HS #30 tablet 01/25/19 [Rx] Oxycodone HCl/Acetaminophen [Percocet 10-325 mg Tablet] 1 each PO Q6H PRN 30 Days #120 tablet 01/25/19 [Rx] Olaparib [Lynparza] 300 mg PO BID 02/07/19 [History] Allergy/AdvReac Type Severity Reaction Status Date / Time lanolin Allergy See Verified 02/06/19 22:40 Comments latex AdvReac Rash Verified 02/06/19 22:40 Review of Systems - Constitutional fatigue, malaise, weakness, weight loss, no chills, no fever(s) - EENT Nose, mouth and throat: no dizziness, no headache(s) - Cardiovascular no chest pain, no diaphoresis, no dyspnea - Respiratory no cough, no dyspnea - Gastrointestinal nausea, no abdominal pain, no vomiting - Genitourinary hematuria, urinary hesitancy, urinary urgency, no change in urinary stream, no difficulty urinating, no dysuria, no erectile dysfunction, no urinary frequency, no urinary incontinence - Musculoskeletal back pain, muscle weakness - Integumentary no erythema, no rash - Neurological confusion, weakness, no syncope - Psychiatric confusion, no anxiety - Hematologic/Lymphatic easy bleeding, easy bruising - Allergic/Immunologic no throat swelling, no wheezing Exam Initial Vital Signs Temp Pulse Resp BP Pulse Ox 98.1 F 109 18 78/45 94 02/06/19 22:40 02/06/19 22:40 02/06/19 22:40 02/06/19 22:40 02/06/19 22:40 - General physical appearance Present: no distress, no pain, chronically ill - Eyes Present: PERRL, normal ocular movement - ENT Present: no hearing loss, no congestion - Neck Present: no masses, trachea midline, no lymphadenopathy - Respiratory Present: normal respiratory effort - Cardiovascular Cardiovascular exam IM: RRR - Abdomen Abdomen: Present: soft, non tender - Genitourinary other (no cvat ) - Integumentary Present: no rash, no abnormal pigmentation - Neurologic Present: confused - Musculoskeletal Present: other (normal posture ) Urology Results - Labs 02/08/19 05:36 02/08/19 05:36 Abnormal lab results RBC 2.77 M/mcL (4.19-5.50) L 02/08/19 05:36 Hgb 8.3 g/dL (12.9-16.9) L 02/08/19 05:36 Hct 24.0 % (37.5-50.1) L 02/08/19 05:36 RDW 20.6 % (11.5-14.5) H 02/08/19 05:36 Plt Count 138 K/mcL (140-400) L 02/08/19 05:36 0.3 K/mcL (0.6-4.6) L 02/08/19 05:36 PT 13.7 Seconds (9.4-12.1) H 02/07/19 01:03 Heparin Anti-Xa, Unfract 0.00 IU/mL (0.30-0.70) L 02/07/19 01:03 Sodium 128 mEq/L (136-145) L 02/08/19 05:36 Potassium 3.4 mEq/L (3.5-5.1) L 02/08/19 05:36 Chloride 96 mEq/L (98-107) L 02/06/19 23:00 Carbon Dioxide 18 mEq/L (23-29) L 02/08/19 05:36 BUN 43 mg/dL (6-20) H 02/08/19 05:36 1.34 mg/dL (0.70-1.30) H 02/08/19 05:36 Est GFR (Non-Af Amer) 55 (> 60) L 02/08/19 05:36 32 (6-26) H 02/08/19 05:36 Glucose 107 mg/dL (70-105) H 02/06/19 23:00 276 (280-300) L 02/08/19 05:36 Calcium 7.5 mg/dL (8.6-10.3) L 02/08/19 05:36 Phosphorus 1.9 mg/dL (2.7-4.5) L 02/08/19 05:36 Magnesium 1.5 mg/dL (1.6-2.6) L 02/08/19 05:36 0.04 ng/mL (< 0.04) H* 02/07/19 08:06 Ur Specimen Adequacy See below A 02/07/19 01:25 Turbid (Clear) A 02/07/19 01:25 Ur Specific [place] 1.009 (1.010-1.025) L 02/07/19 01:25 100 mg/dL (Neg-Trace) H 02/07/19 01:25 Trace mg/dL (Negative) H 02/07/19 01:25 Large (Negative) H 02/07/19 01:25 Ur Leukocyte Esterase Large (Negative) H 02/07/19 01:25 TNTC per hpf (0-3) H 02/07/19 01:25 TNTC per hpf (0-3) H 02/07/19 01:25 Ur Squamous Epith Cells Many per lpf (None-Few) H 02/07/19 01:25 Many per hpf (None-Few) H 02/07/19 01:25 Ur Culture Indicated? YES (NO) A 02/07/19 01:25 Diabetes panel 02/07/19 02/08/19 Range/Units 08:06 05:36 Sodium 127 L 128 L (136-145) mEq/L Potassium 3.6 3.4 L (3.5-5.1) mEq/L Chloride 100 99 (98-107) mEq/L Carbon Dioxide 20 L 18 L (23-29) mEq/L BUN 40 H 43 H (6-20) mg/dL Creatinine 1.32 H 1.34 H (0.70-1.30) mg/dL Glucose 87 85 (70-105) mg/dL Calcium 7.8 L 7.5 L (8.6-10.3) mg/dL Calcium panel 02/07/19 02/08/19 Range/Units 08:06 05:36 Calcium 7.8 L 7.5 L (8.6-10.3) mg/dL Phosphorus 1.9 L (2.7-4.5) mg/dL Pituitary panel 02/07/19 02/08/19 Range/Units 08:06 05:36 Sodium 127 L 128 L (136-145) mEq/L Potassium 3.6 3.4 L (3.5-5.1) mEq/L Chloride 100 99 (98-107) mEq/L Carbon Dioxide 20 L 18 L (23-29) mEq/L BUN 40 H 43 H (6-20) mg/dL Creatinine 1.32 H 1.34 H (0.70-1.30) mg/dL Glucose 87 85 (70-105) mg/dL Calcium 7.8 L 7.5 L (8.6-10.3) mg/dL Adrenal panel 02/07/19 02/08/19 Range/Units 08:06 05:36 Sodium 127 L 128 L (136-145) mEq/L Potassium 3.6 3.4 L (3.5-5.1) mEq/L Chloride 100 99 (98-107) mEq/L Carbon Dioxide 20 L 18 L (23-29) mEq/L BUN 40 H 43 H (6-20) mg/dL Creatinine 1.32 H 1.34 H (0.70-1.30) mg/dL Glucose 87 85 (70-105) mg/dL Calcium 7.8 L 7.5 L (8.6-10.3) mg/dL All other labs normal. Consult Discharge Plan - Plan Referrals: NONE,PCP [Primary Care Provider] - <Liam Shaffer - Last Filed: 02/08/19 15:41> Date of Encounter: 02/08/19 Urology CN:ANITA History of present illness: Patient seen and examined independently. I am in agreement with the assessment and plan as outlined by our Urologic Surgery Department Physician Hardware Technician, Ary. Bedside assessment of urine reveals late color at this time. No heavy bleeding or clots. Plan: Anticipate spontaneous resolution without need for active urologic surgical intervention. We will follow along with you. Exam Initial Vital Signs Temp Pulse Resp BP Pulse Ox 98.1 F 109 18 78/45 94 02/06/19 22:40 02/06/19 22:40 02/06/19 22:40 02/06/19 22:40 02/06/19 22:40 Urology Results - Labs 02/08/19 05:36 02/08/19 05:36 Abnormal lab results RBC 2.77 M/mcL (4.19-5.50) L 02/08/19 05:36 Hgb 8.3 g/dL (12.9-16.9) L 02/08/19 05:36 Hct 24.0 % (37.5-50.1) L 02/08/19 05:36 RDW 20.6 % (11.5-14.5) H 02/08/19 05:36 Plt Count 138 K/mcL (140-400) L 02/08/19 05:36 0.3 K/mcL (0.6-4.6) L 02/08/19 05:36 PT 13.7 Seconds (9.4-12.1) H 02/07/19 01:03 Heparin Anti-Xa, Unfract 0.00 IU/mL (0.30-0.70) L 02/07/19 01:03 Sodium 128 mEq/L (136-145) L 02/08/19 05:36 Potassium 3.4 mEq/L (3.5-5.1) L 02/08/19 05:36 Chloride 96 mEq/L (98-107) L 02/06/19 23:00 Carbon Dioxide 18 mEq/L (23-29) L 02/08/19 05:36 BUN 43 mg/dL (6-20) H 02/08/19 05:36 1.34 mg/dL (0.70-1.30) H 02/08/19 05:36 Est GFR (Non-Af Amer) 55 (> 60) L 02/08/19 05:36 32 (6-26) H 02/08/19 05:36 Glucose 107 mg/dL (70-105) H 02/06/19 23:00 276 (280-300) L 02/08/19 05:36 Calcium 7.5 mg/dL (8.6-10.3) L 02/08/19 05:36 Phosphorus 1.9 mg/dL (2.7-4.5) L 02/08/19 05:36 Magnesium 1.5 mg/dL (1.6-2.6) L 02/08/19 05:36 0.04 ng/mL (< 0.04) H* 02/07/19 08:06 Ur Specimen Adequacy See below A 02/07/19 01:25 Turbid (Clear) A 02/07/19 01:25 Ur Specific [place] 1.009 (1.010-1.025) L 02/07/19 01:25 100 mg/dL (Neg-Trace) H 02/07/19 01:25 Trace mg/dL (Negative) H 02/07/19 01:25 Large (Negative) H 02/07/19 01:25 Ur Leukocyte Esterase Large (Negative) H 02/07/19 01:25 TNTC per hpf (0-3) H 02/07/19 01:25 TNTC per hpf (0-3) H 02/07/19 01:25 Ur Squamous Epith Cells Many per lpf (None-Few) H 02/07/19 01:25 Many per hpf (None-Few) H 02/07/19 01:25 Ur Culture Indicated? YES (NO) A 02/07/19 01:25 Diabetes panel 02/08/19 Range/Units 05:36 Sodium 128 L (136-145) mEq/L Potassium 3.4 L (3.5-5.1) mEq/L Chloride 99 (98-107) mEq/L Carbon Dioxide 18 L (23-29) mEq/L BUN 43 H (6-20) mg/dL Creatinine 1.34 H (0.70-1.30) mg/dL Glucose 85 (70-105) mg/dL Calcium 7.5 L (8.6-10.3) mg/dL Calcium panel 02/08/19 Range/Units 05:36 Calcium 7.5 L (8.6-10.3) mg/dL Phosphorus 1.9 L (2.7-4.5) mg/dL Pituitary panel 02/08/19 Range/Units 05:36 Sodium 128 L (136-145) mEq/L Potassium 3.4 L (3.5-5.1) mEq/L Chloride 99 (98-107) mEq/L Carbon Dioxide 18 L (23-29) mEq/L BUN 43 H (6-20) mg/dL Creatinine 1.34 H (0.70-1.30) mg/dL Glucose 85 (70-105) mg/dL Calcium 7.5 L (8.6-10.3) mg/dL Adrenal panel 02/08/19 Range/Units 05:36 Sodium 128 L (136-145) mEq/L Potassium 3.4 L (3.5-5.1) mEq/L Chloride 99 (98-107) mEq/L Carbon Dioxide 18 L (23-29) mEq/L BUN 43 H (6-20) mg/dL Creatinine 1.34 H (0.70-1.30) mg/dL Glucose 85 (70-105) mg/dL Calcium 7.5 L (8.6-10.3) mg/dL All other labs normal.
[2019-02-08] MEDS ORDERED: Potassium Phosphate 44 MEQ in 0.9 % Sodium Chloride 250 ML IVPB ONE (09:22)
--- NOTE | 2019-02-08 10:27 | Internal Med Progress Note ---
Hospitalist Progress Note - Encounter Date of Encounter: 02/08/19 Time of Encounter: 09:15 - Subjective Interval History: Patient is a 58y/o male with hx of prostate adenocarcinoma with metastatic disease who is admitted for sepsis secondary to PNA, DIANN, and UTI. During this hospitalization, he also developed hematuria. Patient seen and examined with RN present at bedside. Pt was sitting on the beside commode, reports of having generalized weakness and diffuse body aches. He denied any chest pain or shortness of breath at this time. No fever or chills were reported. He is noted to be hypotensive this morning but maintaining his mentation appropriately and is currently AAO x 3. Hematuria persists and urology is on board. Ten point ROS is negative except as listed above. - Exam Vitals: Temp Pulse Resp BP Pulse Ox 98.3 F 101 15 90/48 92 02/08/19 06:54 02/08/19 06:54 02/08/19 06:54 02/08/19 08:24 02/08/19 06:54 Exam: General: No acute distress, AAO x 3 HEENT: EOMI, PERRLA, NC/AT, no scleral icterus Respiratory: Diffuse rhonchi and bibasilar rales, no tachypnea Cardiovascular: Regular Rhythm, sinus tachycardia, No murmurs GI: Soft, Non tender, non distended, normal bowel sounds Ext: pitting edema in b/l LE, no tenderness, positive pulses Neuro: AAO x 3, no focal deficits, CN II-XII grossly intact - Summary of Assessment and Plan Summary of Assessment and Plan: Patient is a 58y/o male with hx of prostate adenocarcinoma with metastatic disea se who is admitted for sepsis secondary to PNA, DIANN, and UTI. During this hospitalization, he also developed hematuria. Assessment/Plan: 1. Sepsis likely secondary to PNA/UTI noted to remain hypotensive urine cultures reporting gram positive cocci continue IV Zosyn (start date: 02/07/19) Add Vancomycin, pharmacist to renally dose Vancomycin continue broad spectrum IV abx given immunocompromised status noted to have diffuse rhonchi and bibasilar rales on auscultation, will obtain CT chest for further evaluation off IV fluids at this time f/u official blood and urine culture report will closely monitor respiratory status 2. DIANN on CKD renal function mildly worsened from previous day renally dose antibiotics holding home dose of Losartan and HCTZ avoid nephrotoxic agents will hold off on IV fluids at this time given pulmonary status, will f/u CT chest will obtain renal US if renal function further deteriorates 3. Elevated TNI likely demand ischemia 2D echo reviewed no chest pain reported will monitor 4. Electrolyte abnormalities Hypokalemia: K supplemented Hypophosphatemia: Phos supplemented Hypomagnesemia: Mg supplemented Closely monitor electrolytes and replace as needed 5. Chronic Hyponatremia will continue to closely monitor clinically asymptomatic 6. Prostate adenocarcinoma with metastatic disease Oncology follow up requested pain control 7. Hematuria urology evaluation appreciated closely monitor H&H at this time hold chemical DVT ppx given gross hematuria DVT ppx: SCD Care plan discussed with patient/RN/case management - Time Spent with Patient Total time spent is greater than 50% in coordination of care (as documented) at patient's floor/unit and/or counseling patient: 25 - 35 minutes Internal Medicine: Result - Labs CBC & Chem 7: 02/08/19 05:36 02/08/19 05:36 Labs: Short CBC 02/07/19 02/08/19 Range/Units 22:27 05:36 WBC 8.6 (4.3-11.1) K/mcL Hgb 8.7 L 8.3 L (12.9-16.9) g/dL Hct 25.2 L 24.0 L (37.5-50.1) % Plt Count 138 L (140-400) K/mcL Neutrophils # 7.7 (1.6-8.9) K/mcL BMP 02/08/19 05:36 Sodium 128 L Potassium 3.4 L Chloride 99 Carbon Dioxide 18 L BUN 43 H Creatinine 1.34 H Glucose 85 Calcium 7.5 L - ABG Interpretation ABG results: PT/INR, D-dimer PT 13.7 Seconds (9.4-12.1) H 02/07/19 01:03 - Impressions Impressions Echocardiogram 02/07/19 02:14 Impressions: LVEF 65-70%. Indeterminate diastolic function. Normal right ventricular structure and function. No significant valvular dysfunction. No pulmonary hypertension. Left Ventricular Wall Motion: Rest Echo Findings All wall segments showed normal motion. Findings: Study Quality * Technically adequate exam. ECG Findings * Normal sinus rhythm. Left Ventricle * LVEF 65-70%. * Normal LV chamber size, wall thickness and function. * Indeterminate diastolic function. * No significant LVOT gradient. Right Ventricle * Normal right ventricular structure and function. Left Atrium * Normal left atrial size. Right Atrium * Normal right atrial size. Aortic Valve * No aortic regurgitation. * Aortic valve not well visualized. * No aortic stenosis. Mitral Valve * No mitral regurgitation. * Normal mitral valve structure. * No mitral stenosis. Tricuspid Valve * Tricuspid valve not well visualized. * Trace tricuspid regurgitation. Pulmonic Valve * Pulmonic valve is not well visualized. * No pulmonic stenosis. * No pulmonic regurgitation. Pulmonary Artery * Pulmonary artery not well visualized. Aorta * Normally sized aortic root. Pericardium * There is no pericardial effusion present. Interatrial Septum * No evidence of PFO by color Doppler. IVC * The IVC is not well evaluated. Consult Discharge Plan - Plan Referrals: NONE,PCP [Primary Care Provider] -
[2019-02-08] MEDS: predniSONE 5 MG TABLET PO SCH (11:54)
--- NOTE | 2019-02-08 14:47 | Palliative - Consult Note ---
Date of Encounter: 02/08/19 Time of Encounter: 14:45 - Assessment and Plan (1) Cancer associated pain Current Visit: Yes Status: Acute Assessment and plan: Patient states that Percocet not really helping with his discomfort at this point. Will transition to oral Roxanol and titrate as needed. (2) Dyspnea Current Visit: Yes Status: Acute Assessment and plan: Utilized Roxanol for dyspnea as well as pain. Supportive oxygen. I have consulted IR to eval for possible pleurx cath placement prior to discharge to help with his symptoms. Qualifiers: Dyspnea type: unspecified Qualified Code(s): R06.00 - Dyspnea, unspecified (3) Goals of care, counseling/discussion Current Visit: Yes Status: Acute Assessment and plan: Oncology has spoke with patient/family regarding progression of disease and CT results, no further treatment to offer. Discussed at length with patient, and daughter, benefits of Hospice care. is primary caregiver, both children are working. Reside in [place]. Patient only has walker at home currently and no home care services in place. Patient and family agreeable with hospice referral. Will have hospice tax representative meet with them tomorrow. They would like to continue atb at this time until discharge as he has symptoms of frequency and hematuria. UPon discharge, these will be discontinued. Discussed code status, and patient transitioned to DNRCC. State form completed. D/W Dr. May, patient will likely d/c home on Wednesday with [facility]. If his symptoms worsen before then, we will evaluate for inpatient hospice for symptom management. Family also had questions regarding the Medicaid process, as caregivers are limited, and they may have to transition patient to ECF at some point. D/W LIS Weiss who will speak with family. Will f/u in am. (4) Prostate cancer metastatic to bone Current Visit: No Status: Acute (5) Peripheral edema Current Visit: No Status: Acute (6) UTI (urinary tract infection) Current Visit: Yes Status: Acute Qualifiers: Urinary tract infection type: acute cystitis Hematuria presence: with hematuria Qualified Code(s): N30.01 - Acute cystitis with hematuria (7) Palliative care encounter Current Visit: Yes Status: Acute Palliative-CN HPI - Data of Consult Consult date: 02/08/19 Requesting Physician: Pinky May MD Primary Care Provider: PCP NONE - Consult Narrative History of present illness: Mr. Durham is a 58 year old male with a history of metastatic prostate cancer s/p radiacal prostatectomy and lymph node dissection in 2014, who presented with fatigue, weakness, nausea. He states was independent with ADL's and cared for himself until a few weeks ago, started having increased weakness and anorexia. He is cared for by Dr. Koenig at [facility]. He was found to have UTI and has had some hematuria, urology following, urine culture remains pending. CT imaging this am demonstrated progression of disease, with malignant pleural effusion, T10/11 spinal cord compression, extensive liver involvement as well. Oncology was consulted - I spoke with Rosemarie Stevens NP, who has visited with patient and discussed with his primary oncology team. Unfortunately,, they do not have any further treatment to offer this patient. Upon my visit, pt with flat affect - A&O x3. Cassia is at bedside. He states, "feels terrible". Audible wheezing noted, appears weak, and in mild respiratory distress. CC: Pinky May MD - Time Spent with Patient Time: Total time spent is greater than 50% in coordination of care (as documented) at patient's floor/unit and/or counseling patient: Past Med Surg Social Fam HX - Past Medical History Medical history: cancer, COPD, hypertension, other Additional medical history: prostate cancer. hydronephrosis. anemia. smoking. low sodium Psychiatric history: no psych history - Past Surgical History Surgical History: appendectomy, orthopedic, other, prostatectomy, other Additional surgical history: broken leg. jaw broken - Social History Smoking Status: Former smoker Smokeless Tobacco Status: No Alcohol use: none Drug use: marijuana - Family History Mother Living Status: Cause of : Cancer Hx Family Cancer: Yes Father Living Status: Still Living Medications and Allergies Calcium Carbonate/Vitamin D3 [Calcium 600-Vit D3 400 Tablet] 1 tab PO DAILY 08/16/18 [History] Losartan [Cozaar] 25 mg PO DAILY 08/23/18 [History] predniSONE [PredniSONE] 5 mg PO DAILY #30 tablet 12/14/18 [Rx] hydroCHLOROthiazide [Hydrochlorothiazide] 12.5 mg PO DAILY 12/19/18 [History] Mirtazapine [Remeron] 30 mg PO HS #30 tablet 01/25/19 [Rx] Oxycodone HCl/Acetaminophen [Percocet 10-325 mg Tablet] 1 each PO Q6H PRN 30 Days #120 tablet 01/25/19 [Rx] Olaparib [Lynparza] 300 mg PO BID 02/07/19 [History] Allergy/AdvReac Type Severity Reaction Status Date / Time lanolin Allergy See Verified 02/06/19 22:40 Comments latex AdvReac Rash Verified 02/06/19 22:40 All systems: reviewed and no additional remarkable complaints except as stated (back pain, urinary frequency/blood in urine, weakness, anorexia, shortness of breath) Palliative Care-Exam - Constitutional Vitals: Temp Pulse Resp BP Pulse Ox 98 F 101 15 90/57 94 02/08/19 11:06 02/08/19 06:54 02/08/19 06:54 02/08/19 11:06 02/08/19 11:06 General appearance: Present: mild distress - Head Head Exam: Present: normal inspection, normocephalic - Respiratory Respiratory exam: Present: decreased breath sounds Additional comments: Scattered expiratory wheezes anteriorally. Breath sounds diminished lower lobes bilaterally. - Cardiovascular Cardiovascular exam: Present: +S1, +S2 - GI/Abdominal Exam GI/Abdominal exam: Present: distended, normal bowel sounds, soft - Additional comments: Voiding per urinal - Extremities Exam Extremities exam: Present: normal capillary refill Additional comments: 3+ bilateral lower extremity edema - Neurological Exam Neurological exam: Present: alert, oriented X3, strengths equal and symetr throughout - Skin Skin exam: Present: dry, pallor, warm Internal Medicine - CN: Reslt - Labs CBC & Chem 7: 02/08/19 05:36 02/08/19 05:36 Labs: Short CBC 02/07/19 02/08/19 Range/Units 22:27 05:36 WBC 8.6 (4.3-11.1) K/mcL Hgb 8.7 L 8.3 L (12.9-16.9) g/dL Hct 25.2 L 24.0 L (37.5-50.1) % Plt Count 138 L (140-400) K/mcL Neutrophils # 7.7 (1.6-8.9) K/mcL BMP 02/08/19 05:36 Sodium 128 L Potassium 3.4 L Chloride 99 Carbon Dioxide 18 L BUN 43 H Creatinine 1.34 H Glucose 85 Calcium 7.5 L - ABG Interpretation ABG results: PT/INR, D-dimer PT 13.7 Seconds (9.4-12.1) H 02/07/19 01:03 - Impressions Impressions Echocardiogram 02/07/19 02:14 Impressions: LVEF 65-70%. Indeterminate diastolic function. Normal right ventricular structure and function. No significant valvular dysfunction. No pulmonary hypertension. Left Ventricular Wall Motion: Rest Echo Findings All wall segments showed normal motion. Findings: Study Quality * Technically adequate exam. ECG Findings * Normal sinus rhythm. Left Ventricle * LVEF 65-70%. * Normal LV chamber size, wall thickness and function. * Indeterminate diastolic function. * No significant LVOT gradient. Right Ventricle * Normal right ventricular structure and function. Left Atrium * Normal left atrial size. Right Atrium * Normal right atrial size. Aortic Valve * No aortic regurgitation. * Aortic valve not well visualized. * No aortic stenosis. Mitral Valve * No mitral regurgitation. * Normal mitral valve structure. * No mitral stenosis. Tricuspid Valve * Tricuspid valve not well visualized. * Trace tricuspid regurgitation. Pulmonic Valve * Pulmonic valve is not well visualized. * No pulmonic stenosis. * No pulmonic regurgitation. Pulmonary Artery * Pulmonary artery not well visualized. Aorta * Normally sized aortic root. Pericardium * There is no pericardial effusion present. Interatrial Septum * No evidence of PFO by color Doppler. IVC * The IVC is not well evaluated. Chest CT 02/08/19 10:24 IMPRESSION: Overall progression in extensive metastatic disease throughout the chest, which includes enlarging, now moderate and likely malignant bilateral pleural effusions. Of note, is a large amount of metastatic soft tissue surrounding the T10 and T11 vertebral bodies, which is likely resulting in neural foraminal and spinal canal compression. Progressive ground-glass and interstitial changes throughout both lungs. Lymphangitic carcinomatosis is suspected, although, atypical infection is also a consideration. Extensive hepatic metastatic disease. D/ / 02/08/2019 11:55:39 Naveed Parker MD / josiah Interpreting Provider: Naveed Parker MD Consult Discharge Plan - Plan Referrals: NONE,PCP [Primary Care Provider] - Palliative Quality Palliative Quality: Screen for Code Status: Yes, Screen for Goals of Care: Yes, Screen for Pain: Yes, If Pain Regimen Started, Initiate Bowel Regimen: Yes, Screen for Nausea/Vomitting: Yes Code Status: 02/07/19 02:14 Resuscitation Status: Active [RES] Routine Comment: Resuscitation Status: Full Code
--- NOTE | 2019-02-08 15:33 | Oncology Inp Consult Note ---
<Juan Francisco Guerrero - Last Filed: 02/08/19 17:32> Date of Encounter: 02/08/19 Time of Encounter: 17:32 - Data of Consult Requesting Physician: Pinky May MD Primary Care Provider: PCP NONE Medications and Allergies Calcium Carbonate/Vitamin D3 [Calcium 600-Vit D3 400 Tablet] 1 tab PO DAILY 08/16/18 [History] Losartan [Cozaar] 25 mg PO DAILY 08/23/18 [History] predniSONE [PredniSONE] 5 mg PO DAILY #30 tablet 12/14/18 [Rx] hydroCHLOROthiazide [Hydrochlorothiazide] 12.5 mg PO DAILY 12/19/18 [History] Mirtazapine [Remeron] 30 mg PO HS #30 tablet 01/25/19 [Rx] Oxycodone HCl/Acetaminophen [Percocet 10-325 mg Tablet] 1 each PO Q6H PRN 30 Days #120 tablet 01/25/19 [Rx] Olaparib [Lynparza] 300 mg PO BID 02/07/19 [History] Allergy/AdvReac Type Severity Reaction Status Date / Time lanolin Allergy See Verified 02/06/19 22:40 Comments latex AdvReac Rash Verified 02/06/19 22:40 Consult Discharge Plan - Plan Referrals: NONE,PCP [Primary Care Provider] - Inpatient Charges Provider: Dr. Marita Guerrero Consult - Inpatient: [id number] - Attending Attestation I examined this patient and my medical decision-making was reviewed with the Advanced Practice Nurse. I agree with the documented findings, disposition and treatment plan as described except to the extent set forth below. -Patient with CRPC s/p multiple lines of therapy. Recently on Cabazitaxel -He nows presents w/ spinal cord compression at T10/T11 -After a long discussion, patient and family do not want to pursue any aggressive measures at this time -They would like to pursue hospice which is appropriate based on his clinical condition -We will sign off at this time, please call us with any further questions. <Rosemarie Stevens - Last Filed: 02/08/19 18:04> Date of Encounter: 02/08/19 Assessment and Plan (1) Prostate cancer Status: Acute Assessment and plan: Metastatic, castrate resistant prostate adenocarcinoma. S/P multiple lines of treatment as detailed in HPI Current therapy includes Jevtana initiated 12/14/2018 According to recent PSA/Imaging he is biochemically and radiographically progressing In addition to this, overall performance status has significantly declined -CT of the chest today reveals significant progression of disease in his chest as well as soft tissue mass T10/T11 vertebral bodies, which is likely resulting in neural foraminal and spinal canal compression. Plan: Discussed CT imaging results and options in regards to treatment which are extremely limited overall given his decline in PS coupled by significant progression of disease, there's concern that palliative radiotherapy may not provide meaningful benefit. He is not a good candidate for olaparib moving forward given the above Case was discussed with treating oncologist Dr. Koenig as well as Radiation Oncologist, Dr. Crawford who would agree with palliative care/hospice approach given his significant burden of disease and overall declining PS Patient is not interested in pursuing further aggressive treatment options and would like to discuss options for hospice Erica Traore CNP with Palliative Care aware of discussion Verbal support was provided to patient and family We will otherwise plan to sign off as hospitalist/palliative care teamscontinues to work with logistics of hospice arrangements/optimization of symptom control Consider consultation to IR (palliative care already placed) for therapeutic thora/pleurx cath placement which would help to alleviate symptoms of SOB and progression of hypoxia if patient agreeable to procedure - Data of Consult Patient: known to practice within the last 3 years Consult date: 02/08/19 Requesting Physician: Pinky May MD Primary Care Provider: PCP NONE - Consult Narrative Reason for consult: Metastatic prostate adencarcinoma History of present illness: Mr. Durham is a 58 year old male with metastatic, castrate resistant prostate adenocarcinoma. Foundation 1 with BRCA2 loss, microsatellite stable, CDK6 amplification, EPHB4 amplification, HGF amplification, MYC amplification, PTEN mutation, RAD21 amplification, RPTOR amplification. Initially diagnosed in 06/2014 and is s/p robotic-assisted radical prostatectomy and lymph node dissection 10/01/2014. Pathologically there was seminal vesicle invasion as well as positive margins along the bladder neck. Lymph nodes were negative. Postoperative PSA remained elevated at 2.49. Prior therapy: 1. Eligard initiated 11/2014 2. Salvage pelvic (4500 cGy) and prostatic fossa (7020 cGy) radiotherapy at [facility] with Dr. Wang 04/08/2015-06/03/2015 3. Carol 10/2016-10/2017 4. Xofigo x 6 cycles 12/2017-05/2018 5. Docetaxel 08/29/2018-10/31/2018, dose reduced for PPE cycle #2. Stopped secondary to progression Current therapy: 1. Jevtana initiated 12/14/2018 2. Lupron 3. Zometa initiated 08/29/2018 At his most recent visit with Dr. Koenig on 01/25/2019, he was given cycle #3 Jevtana, however, it was of concern that he was progressing. PSA was not available at that time of consultation but has since resulted at 593 (495 on 01/04). He tentatively was planned to start olaparib. He has since been admitted for symptoms related to dehydration and overall decline in functional status including weakness, fatigue, decreased appetite, nausea, diarrhea and generalized malaise. He has been admitted with sepsis and PNA. He also notes dysuria and hematuria for which urology has been consulted. Past Med Surg Social Fam HX - Past Medical History Medical history: cancer, COPD, hypertension, other Additional medical history: prostate cancer. hydronephrosis. anemia. smoking. low sodium Psychiatric history: no psych history - Past Surgical History Surgical History: appendectomy, orthopedic, other, prostatectomy, other Additional surgical history: broken leg. jaw broken - Social History Smoking Status: Former smoker Smokeless Tobacco Status: No Alcohol use: none Drug use: marijuana - Family History Mother Living Status: Cause of : Cancer Hx Family Cancer: Yes Father Living Status: Still Living Constitutional: Present: anorexia, fatigue, malaise, weakness, weight loss. Absent: chills, fever(s) Eyes: Absent: change in vision Nose, mouth and throat: Absent: dysphagia, odynophagia Cardiovascular: Present: edema. Absent: chest pain Respiratory: Present: cough, dyspnea Gastrointestinal: Present: nausea, vomiting. Absent: abdominal pain, diarrhea Genitourinary: Present: dysuria, hematuria Musculoskeletal: Present: back pain Integumentary: Absent: wounds Neurological: Absent: confusion, focal weakness Psychiatric: Present: as per HPI Endocrine: Present: as per HPI Hematologic/Lymphatic: Present: as per HPI Oncology - Exam - Constitutional General appearance: cooperative, no acute distress, no febrile Exam: chronically ill appearing. appears uncomfortable. - Head Head exam: Present: atraumatic - ENT ENT exam: Present: mucous membranes moist, normal oropharynx - Respiratory Respiratory exam: Present: decreased breath sounds, rhonchi. Absent: respiratory distress - Cardiovascular Cardiovascular exam: Present: RRR - GI/Abdominal GI/Abdominal exam: Present: normal bowel sounds, soft. Absent: tenderness - Extremities Exam Extremities exam: Absent: calf tenderness Additional comments: 2-3+ pitting edema BLE Muscle weakness to upper and lower extremities 2/5 - Neurological Exam Neurological exam: Present: alert, oriented X3, no focal deficits, strengths equal and symetr throughout - Psychiatric Additional comments: as expected given circumstances - Skin Skin exam: Present: dry, pallor, warm
[2019-02-08] MEDS ORDERED: Acetaminophen IV 1,000 MG/100 ML INFUS..BTL IVPB ONE (15:37)
[2019-02-08] MEDS ORDERED: *HR* LORazepam Oral Conc 2 MG/ML SL PRN (15:46)
[2019-02-08] MEDS: Mirtazapine 15 MG TABLET PO SCH (21:17)
[2019-02-09] MEDS: Piperacillin/Tazobactam 3.375 GM in 0.9 % Sodium Chloride Mini Bag 100 ML IVPB SCH ×2 (05:18→16:33)
[2019-02-09 05:49] LABS: Basophils % 0.1 %; Eosinophils % 0.5 %; Hematocrit 25.2 % (37.5-50.1); Hemoglobin 8.6 g/dL (12.9-16.9); Immature Granulocytes % 1.1 % (0-4); Lymphocytes # 0.2 K/mcL (0.6-4.6); Lymphocytes % 2.6 %; Mean Corpuscular HGB Conc 34.1 g/dL (31.6-35.5); Mean Corpuscular Hemoglobin 30.1 pg (28.0-33.3); Mean Corpuscular Volume 88.1 fL (83.0-100.0); Mean Platelet Volume 10.8 fL (9.4-12.4); Monocytes # 0.5 K/mcL (0.0-1.3); Monocytes % 5.7 %; Neutrophils # 7.2 K/mcL (1.6-8.9); Nucleated Red Blood Cells 0.2 /100 WBC (0); Platelet Count 144 K/mcL (140-400); Red Blood Count 2.86 M/mcL (4.19-5.50); Red Cell Distribution Width 21.1 % (11.5-14.5)
[2019-02-09 06:05] LABS: BUN/Creatinine Ratio 34 (6-26); Blood Urea Nitrogen 45 mg/dL (6-20); Calcium 7.2 mg/dL (8.6-10.3); Carbon Dioxide 19 mEq/L (23-29); Chloride 101 mEq/L (98-107); Glucose 91 mg/dL (70-105); Magnesium 1.7 mg/dL (1.6-2.6); Osmolality,Calculated 281 (280-300); Phosphorous 2.5 mg/dL (2.7-4.5); Potassium 3.6 mEq/L (3.5-5.1); Sodium 130 mEq/L (136-145); eGFR For Non-African Americans 55 (> 60)
--- NOTE | 2019-02-09 08:20 | Urology Progress Note ---
Date of Encounter: 02/09/19 Time of Encounter: 07:45 - Assessment and Plan (1) Prostate cancer Current Visit: Yes Status: Acute (2) Hematuria Current Visit: Yes Status: Acute Assessment and plan: Patient is a 58-year-old male who presents with a history of metastatic prostate cancer and gross hematuria. Patient also has a urinary tract infection culture positive for gram-positive cocci. Final culture and sensitivity report is pending. Patient has elected to proceed with hospice care given his advancing prostate cancer. At this time, patient still wishes to proceed without indwelling Mcginnis catheter. If bleeding worsens or patient experiences clot r etention, we will proceed with Mcginnis catheter placement at that time. Qualifiers: Hematuria type: gross Qualified Code(s): R31.0 - Gross hematuria (3) UTI (urinary tract infection) Current Visit: Yes Status: Acute Qualifiers: Urinary tract infection type: acute cystitis Hematuria presence: with hematuria Qualified Code(s): N30.01 - Acute cystitis with hematuria Progress Note Subjective: no new complaints Narrative: Patient seen and examined sitting upright in bed in no apparent distressed. Patient is voiding without difficulty but with continued blood in the urine. Patient denies any dysuria, but he admits to urgency and frequency. Patient denies any fever, chills or flank pain. Objective Initial Vital Signs Temp Pulse Resp BP Pulse Ox 98.1 F 109 18 78/45 94 02/06/19 22:40 02/06/19 22:40 02/06/19 22:40 02/06/19 22:40 02/06/19 22:40 - General physical appearance Present: no distress, no pain, chronically ill - Respiratory Present: normal expansion, normal respiratory effort - Abdomen Present: soft, non tender - Genitourinary Urine Appearance: Present: Hematuria (Urine and bedside urinal is tea-colored) - Integumentary Present: no rash, no abnormal pigmentation - Musculoskeletal Present: normal posture - Psychiatric Present: oriented to time, oriented to person, oriented to place, speech is normal, memory intact - Labs 02/09/19 05:34 02/09/19 05:34 Diabetes panel 02/09/19 Range/Units 05:34 Sodium 130 L (136-145) mEq/L Potassium 3.6 (3.5-5.1) mEq/L Chloride 101 (98-107) mEq/L Carbon Dioxide 19 L (23-29) mEq/L BUN 45 H (6-20) mg/dL Creatinine 1.34 H (0.70-1.30) mg/dL Glucose 91 (70-105) mg/dL Calcium 7.2 L (8.6-10.3) mg/dL Calcium panel 02/09/19 Range/Units 05:34 Calcium 7.2 L (8.6-10.3) mg/dL Phosphorus 2.5 L (2.7-4.5) mg/dL Pituitary panel 02/09/19 Range/Units 05:34 Sodium 130 L (136-145) mEq/L Potassium 3.6 (3.5-5.1) mEq/L Chloride 101 (98-107) mEq/L Carbon Dioxide 19 L (23-29) mEq/L BUN 45 H (6-20) mg/dL Creatinine 1.34 H (0.70-1.30) mg/dL Glucose 91 (70-105) mg/dL Calcium 7.2 L (8.6-10.3) mg/dL Adrenal panel 02/09/19 Range/Units 05:34 Sodium 130 L (136-145) mEq/L Potassium 3.6 (3.5-5.1) mEq/L Chloride 101 (98-107) mEq/L Carbon Dioxide 19 L (23-29) mEq/L BUN 45 H (6-20) mg/dL Creatinine 1.34 H (0.70-1.30) mg/dL Glucose 91 (70-105) mg/dL Calcium 7.2 L (8.6-10.3) mg/dL Consult Discharge Plan - Plan Referrals: NONE,PCP [Primary Care Provider] -
[2019-02-09] MEDS: predniSONE 5 MG TABLET PO SCH (09:03)
[2019-02-09] MEDS: MORPHINE SUL Oral CONC 10 MG/0.5 ML ORAL.SYG SL PRN ×2 (10:29→21:52)
--- NOTE | 2019-02-09 10:37 | Internal Med Progress Note ---
Hospitalist Progress Note - Encounter Date of Encounter: 02/09/19 Time of Encounter: 10:35 - Subjective Interval History: Patient seen and examined earlier today. Sitting in bed and saturating well on nasal cannula. Reports of being short of breath and has diffuse body pain. Noted to be hypotensive due to which pt has not been getting his pain medications. Pt and POA decided to pursue comfort care measures with hospice care. Palliative care follow up with requested in regards to establish detailed goals of care in regards to blood draws, vital monitoring, administration of pain medications with low BP readings. Ten point ROS is negative except as listed above Pt's hematuria persists and pt is currently incontinent. Urology on board. - Exam Vitals: Temp Pulse Resp BP Pulse Ox 97.7 F 103 24 96/54 93 02/09/19 06:52 02/09/19 08:56 02/09/19 08:56 02/09/19 08:56 02/09/19 06:52 Exam: General: AAO x 3, frail appearing elderly male HEENT: EOMI, NC/AT, no scleral icterus Respiratory: Diffuse rhonchi and bibasilar rales, no tachypnea Cardiovascular: Regular Rhythm, sinus tachycardia, No murmurs GI: Soft, Non tender, non distended, normal bowel sounds Ext: pitting edema in b/l LE, no tenderness, positive pulses Neuro: AAO x 3, no focal deficits, CN II-XII grossly intact - Summary of Assessment and Plan Summary of Assessment and Plan: Patient is a 58y/o male with hx of prostate adenocarcinoma with metastatic disease who is admitted for sepsis secondary to PNA, DIANN, and UTI. During this hospitalization, he also developed hematuria. Assessment/Plan: 1. Sepsis likely secondary to PNA/UTI noted to remain hypotensive urine cultures reporting gram positive cocci continue IV Zosyn (start date: 02/07/19) continue Vancomycin, pharmacist to renaly dose Vancomycin continue broad spectrum IV abx given immunocompromised status CT chest reviewed f/u official blood and urine culture report will closely monitor respiratory status 2. DIANN on CKD renal function unchanged from previous day renaly dose antibiotics holding home dose of Losartan and HCTZ avoid nephrotoxic agents 3. Elevated TNI likely demand ischemia 2D echo reviewed no chest pain reported will monitor 4. Electrolyte abnormalities Hypokalemia: resolved Hypophosphatemia: Phos supplemented Hypomagnesemia: resolved Closely monitor electrolytes and replace as needed 5. Chronic Hyponatremia will continue to closely monitor clinically asymptomatic 6. Prostate adenocarcinoma with metastatic disease Oncology follow up appreciated Pt decided to pursue comfort care with hospice. Palliative care evaluation appreciated and follow up requested to establish detailed goals of cares in regards to IV abx, lab draws, vital monitoring. pain control 7. Hematuria urology evaluation appreciated closely monitor H&H at this time hold chemical DVT ppx given gross hematuria DVT ppx: SCD code status: DNR-CC Care plan discussed with patient/RN/case management/consulting provider - Time Spent with Patient Total time spent is greater than 50% in coordination of care (as documented) at patient's floor/unit and/or counseling patient: 25 - 35 minutes Internal Medicine: Result - Labs CBC & Chem 7: 02/09/19 05:34 02/09/19 05:34 Labs: Short CBC 02/09/19 Range/Units 05:34 WBC 8.0 (4.3-11.1) K/mcL Hgb 8.6 L (12.9-16.9) g/dL Hct 25.2 L (37.5-50.1) % Plt Count 144 (140-400) K/mcL Neutrophils # 7.2 (1.6-8.9) K/mcL BMP 02/09/19 05:34 Sodium 130 L Potassium 3.6 Chloride 101 Carbon Dioxide 19 L BUN 45 H Creatinine 1.34 H Glucose 91 Calcium 7.2 L Cardiac Enzymes 02/09/19 Range/Units 05:34 Troponin I 0.03 (< 0.04) ng/mL - ABG Interpretation ABG results: PT/INR, D-dimer PT 13.7 Seconds (9.4-12.1) H 02/07/19 01:03 - Impressions Impressions Chest CT 02/08/19 10:24 IMPRESSION: Overall progression in extensive metastatic disease throughout the chest, which includes enlarging, now moderate and likely malignant bilateral pleural effusions. Of note, is a large amount of metastatic soft tissue surrounding the T10 and T11 vertebral bodies, which is likely resulting in neural foraminal and spinal canal compression. Progressive ground-glass and interstitial changes throughout both lungs. Lymphangitic carcinomatosis is suspected, although, atypical infection is also a consideration. Extensive hepatic metastatic disease. D/ / 02/08/2019 11:55:39 Naveed Parker MD / josiah Interpreting Provider: Naveed Parker MD Consult Discharge Plan - Plan Referrals: NONE,PCP [Primary Care Provider] -
--- NOTE | 2019-02-09 14:36 | Palliative Progress Note ---
Date of Encounter: 02/09/19 Time of Encounter: 11:25 - Assessment and plan (1) Cancer associated pain Current Visit: Yes Status: Acute Assessment and plan: Roxanol was ordered yesterday, has not been given. Spent some time educating pt on use of this for his discomfort and shortness of breath. (2) Dyspnea Current Visit: Yes Status: Acute Assessment and plan: Continue with supportive oxygen. Roxanol PRN. Qualifiers: Dyspnea type: unspecified Qualified Code(s): R06.00 - Dyspnea, unspecified (3) Goals of care, counseling/discussion Current Visit: Yes Status: Acute Assessment and plan: Awaiting family to arrive today, they plan on meeting with [facility] account service representative this afternoon. He will need several DME''s set up prior to discharge, including Bed/o2/overbed table etc. Cardiac monitored D/C'd. D/W Dr. May. No bed on palliative unit to transfer patient to. D/W primary nurse he is now open and agreeing to take pain medication. 1545 - revisited patient and family. He is s/p thoracentesis and breathing much better. Pia Le RN with [facility] met with patient/family. Prescriptions completed for Roxanol, Ativan, Senokot, Compazine, Decadron, and Remeron. Daughter would like patient to discharge tomorrow afternoon as she has to work until 1430. Updated Dr. May. (4) Prostate cancer metastatic to bone Current Visit: No Status: Acute (5) Peripheral edema Current Visit: No Status: Acute (6) UTI (urinary tract infection) Current Visit: Yes Status: Acute Qualifiers: Urinary tract infection type: acute cystitis Hematuria presence: with hematuria Qualified Code(s): N30.01 - Acute cystitis with hematuria (7) Palliative care encounter Current Visit: Yes Status: Acute - Time Spent With Patient Total time spent is greater than 50% in coordination of care (as documented) at patient's floor/unit and/or counseling patient: - Subjective Interval history: Patient awake and alert. Oriented to name and place, but appears pleasantly confused. Restless at times, states breathing is more difficult. Awaiting IR to eval for thoracentesis. He has refused pain medication ordered yesterday, spent time educating/counseling on this, and he is agreeing to try. Family has not arrived yet today, supposed to meet with hospice account service representative at 1500. - Constitutional Vitals: Abnormal lab results RBC 2.86 M/mcL (4.19-5.50) L 02/09/19 05:34 Hgb 8.6 g/dL (12.9-16.9) L 02/09/19 05:34 Hct 25.2 % (37.5-50.1) L 02/09/19 05:34 RDW 21.1 % (11.5-14.5) H 02/09/19 05:34 Plt Count 138 K/mcL (140-400) L 02/08/19 05:36 0.2 K/mcL (0.6-4.6) L 02/09/19 05:34 Nucleated RBCs/100 WBC 0.2 /100 WBC (0) H 02/09/19 05:34 PT 13.7 Seconds (9.4-12.1) H 02/07/19 01:03 Heparin Anti-Xa, Unfract 0.00 IU/mL (0.30-0.70) L 02/07/19 01:03 Sodium 130 mEq/L (136-145) L 02/09/19 05:34 Potassium 3.4 mEq/L (3.5-5.1) L 02/08/19 05:36 Chloride 96 mEq/L (98-107) L 02/06/19 23:00 Carbon Dioxide 19 mEq/L (23-29) L 02/09/19 05:34 BUN 45 mg/dL (6-20) H 02/09/19 05:34 1.34 mg/dL (0.70-1.30) H 02/09/19 05:34 Est GFR (Non-Af Amer) 55 (> 60) L 02/09/19 05:34 34 (6-26) H 02/09/19 05:34 Glucose 107 mg/dL (70-105) H 02/06/19 23:00 276 (280-300) L 02/08/19 05:36 Calcium 7.2 mg/dL (8.6-10.3) L 02/09/19 05:34 Phosphorus 2.5 mg/dL (2.7-4.5) L 02/09/19 05:34 Magnesium 1.5 mg/dL (1.6-2.6) L 02/08/19 05:36 0.04 ng/mL (< 0.04) H* 02/07/19 08:06 Ur Specimen Adequacy See below A 02/07/19 01:25 Turbid (Clear) A 02/07/19 01:25 Ur Specific Porter 1.009 (1.010-1.025) L 02/07/19 01:25 100 mg/dL (Neg-Trace) H 02/07/19 01:25 Trace mg/dL (Negative) H 02/07/19 01:25 Large (Negative) H 02/07/19 01:25 Ur Leukocyte Esterase Large (Negative) H 02/07/19 01:25 TNTC per hpf (0-3) H 02/07/19 01:25 TNTC per hpf (0-3) H 02/07/19 01:25 Ur Squamous Epith Cells Many per lpf (None-Few) H 02/07/19 01:25 Many per hpf (None-Few) H 02/07/19 01:25 Ur Culture Indicated? YES (NO) A 02/07/19 01:25 General appearance: Present: no acute distress - Respiratory Additional comments: Audible exp wheezes upper lobes, breath sounds greatly diminished lower lobes. - Cardiovascular Cardiovascular exam: Present: +S1, +S2 - GI/Abdominal GI/Abdominal exam: Present: distended, normal bowel sounds, soft - Additional comments: Urine remains bloody. - Extremities Exam Additional comments: 3+ pitting edema bilateral lower extremities - Neurological Exam Neurological exam: Present: alert, oriented X3, strengths equal and symetr throughout Additional comments: inappropriate statements at times. - Skin Skin exam: Present: dry, pallor, warm Palliative Quality Palliative Quality: Screen for Code Status: Yes, Screen for Goals of Care: Yes, Screen for Pain: Yes, If Pain Regimen Started, Initiate Bowel Regimen: Yes, Screen for Nausea/Vomitting: Yes Code Status: 02/07/19 02:14 Resuscitation Status: Active [RES] Routine Comment: Resuscitation Status: Full Code 02/08/19 15:43 DNR [Resuscitation Status: Active] [RES] Routine Comment: Resuscitation Status: DNR-Comfort Care - Labs CBC & Chem 7: 02/09/19 05:34 05/23/19 05:34 Labs: Laboratory Results - last 24 hr 02/09/19 02/09/19 02/09/19 05:34 05:34 05:34 WBC 8.0 RBC 2.86 L Hgb 8.6 L Hct 25.2 L MCV 88.1 MCH 30.1 MCHC 34.1 RDW 21.1 H Plt Count 144 MPV 10.8 Immature Gran % 1.1 Seg Neutrophils % 90.0 Lymphocytes % 2.6 Monocytes % 5.7 Eosinophils % 0.5 Basophils % 0.1 Neutrophils # 7.2 Lymphocytes # 0.2 L Monocytes # 0.5 Eosinophils # 0.0 Basophils # 0.0 Nucleated RBCs/100 WBC 0.2 H Sodium 130 L Potassium 3.6 Chloride 101 Carbon Dioxide 19 L BUN 45 H Creatinine 1.34 H Est GFR ( Amer) > 60 Est GFR (Non-Af Amer) 55 L BUN/Creatinine Ratio 34 H Glucose 91 Calculated Osmolality 281 Calcium 7.2 L Phosphorus 2.5 L Magnesium 1.7 Troponin I 0.03 - ABG Interpretation ABG results: PT/INR, D-dimer PT 13.7 Seconds (9.4-12.1) H 02/07/19 01:03 Consult Discharge Plan - Plan Referrals: NONE,PCP [Primary Care Provider] - Prescriptions: LORazepam Oral Conc [Ativan Oral Conc] 0.5 mg PO Q4H PRN 4 Days #15 mls PRN Reason: Anxiety Prochlorperazine Maleate [Compazine] 10 mg PO Q6HR PRN 4 Days #16 tablet PRN Reason: Nausea Dexamethasone [Decadron] 4 mg PO BID 4 Days #8 tab Mirtazapine [Remeron] 30 mg PO HS 4 Days #4 tablet MORPHINE SUL Oral CONC [Roxanol Oral Conc] 10 mg PO Q2H PRN 4 Days #15 oral.syg PRN Reason: Pain Sennosides/Docusate Sodium [Senna Plus] 1 each PO BID PRN #8 tablet PRN Reason: Constipation
--- NOTE | 2019-02-09 14:43 | IR Procedure Note ---
Date of procedure: 02/09/19 Consent Obtained: Written consent Timeout: Correct patient and procedure verified, Correct site verified, Time out performed, Skin prep completed Local anesthetic: Lidocaine 1% Indications: Prostate cancer, bilateral pleural effusions. Procedure Performed: Bilateral thoracentesis Was there an business assistant present: No Site/Technique: Bilateral 8fr cath's used.First time thoras.Presumed malignant by CT. Results/Findings: Rec'd to oncology to do thora's first.If rapidly accumulate,consider Pleurx Estimated blood loss (cc): 1 Complications: None; Tolerated procedure well Post Procedure Treatment Plan: Monitoring in VIR Specimen: None
[2019-02-09] MEDS: Mirtazapine 15 MG TABLET PO SCH (21:52)
[2019-02-10] MEDS: Piperacillin/Tazobactam 3.375 GM in 0.9 % Sodium Chloride Mini Bag 100 ML IVPB SCH ×2 (00:34→08:42)
[2019-02-10 06:50] VITALS: BP 84/54
--- NOTE | 2019-02-10 08:35 | Urology Progress Note ---
Date of Encounter: 02/10/19 Time of Encounter: 08:10 - Assessment and Plan (1) Prostate cancer Current Visit: Yes Status: Acute Assessment and plan: Patient is a 58-year-old male who presents with a history of advancing metastati c prostate cancer, gross hematuria and enterococcus urinary tract infection. Vital signs are stable and afebrile. Hematuria is resolving. Patient has elected to proceed with hospice and palliative care. Patient is receiving IV Zosyn and vancomycin. Final sensitivity report is pending for urine culture. Patient will require an additional 10 days of culture sensitive oral antibiotics. Urology will sign off but is always available as needed. (2) Hematuria Current Visit: Yes Status: Acute Qualifiers: Hematuria type: gross Qualified Code(s): R31.0 - Gross hematuria (3) UTI (urinary tract infection) Current Visit: Yes Status: Acute Qualifiers: Urinary tract infection type: acute cystitis Hematuria presence: with hematuria Qualified Code(s): N30.01 - Acute cystitis with hematuria Progress Note Narrative: Patient seen and examined lying in bed in no apparent distress. Patient reports he is breathing better after thoracocentesis. Patient reports voiding well w ithout difficulty. 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 Patient denies fever, chills, flank pain. Objective Initial Vital Signs Temp Pulse Resp BP Pulse Ox 98.1 F 109 18 78/45 94 02/06/19 22:40 02/06/19 22:40 02/06/19 22:40 02/06/19 22:40 02/06/19 22:40 - General physical appearance Present: no distress, no pain, chronically ill - Respiratory Present: normal expansion, normal respiratory effort - Abdomen Present: soft, non tender - Genitourinary Present: other (No CVAT) - Integumentary Present: no rash, no growths - Musculoskeletal Present: normal posture - Psychiatric Present: oriented to time, oriented to person, oriented to place, speech is normal, memory intact - Labs 02/09/19 05:34 02/09/19 05:34 Consult Discharge Plan - Plan Referrals: NONE,PCP [Primary Care Provider] - Prescriptions: LORazepam Oral Conc [Ativan Oral Conc] 0.5 mg PO Q4H PRN 4 Days #15 mls PRN Reason: Anxiety Prochlorperazine Maleate [Compazine] 10 mg PO Q6HR PRN 4 Days #16 tablet PRN Reason: Nausea Dexamethasone [Decadron] 4 mg PO BID 4 Days #8 tab Mirtazapine [Remeron] 30 mg PO HS 4 Days #4 tablet MORPHINE SUL Oral CONC [Roxanol Oral Conc] 10 mg PO Q2H PRN 4 Days #15 oral.syg PRN Reason: Pain Sennosides/Docusate Sodium [Senna Plus] 1 each PO BID PRN #8 tablet PRN Reason: Constipation
[2019-02-10 11:35] LABS: BUN/Creatinine Ratio 35 (6-26); Blood Urea Nitrogen 46 mg/dL (6-20); eGFR For Non-African Americans 56 (> 60)
--- NOTE | 2019-02-10 12:20 | Physician Discharge Referral ---
Home Health/Hosp Referral Info Transfer to: Home Health, Hospice Provider in Charge Post Discharge: [facility]np - Diagnosis (1) Cancer associated pain Priority: Secondary Status: Chronic (2) Hematuria Priority: Primary Status: Acute (3) Prostate cancer Priority: Secondary Status: Chronic (4) UTI (urinary tract infection) Priority: Primary Status: Acute (5) Prostate cancer metastatic to bone Priority: Secondary Status: Chronic - Respiratory Orders Smoking Cessation: Smoking cessation has been advised. For more information, call the [place] Tobacco Quit Line at 7-873-GXFX-NOW. - Services Needed Following services are medically necessary services: Nursing, Home Health Aide, Physical Therapy, Occupational Therapy - Transfer Medications Prescriptions: LORazepam Oral Conc [Ativan Oral Conc] 0.5 mg PO Q4H PRN 4 Days #15 mls PRN Reason: Anxiety Prochlorperazine Maleate [Compazine] 10 mg PO Q6HR PRN 4 Days #16 tablet PRN Reason: Nausea Dexamethasone [Decadron] 4 mg PO BID 4 Days #8 tab Doxycycline 100 mg PO BID #20 capsule Levofloxacin [Levaquin] 750 mg PO DAILY #10 tablet Mirtazapine [Remeron] 30 mg PO HS 4 Days #4 tablet MORPHINE SUL Oral CONC [Roxanol Oral Conc] 10 mg PO Q2H PRN 4 Days #15 oral.syg PRN Reason: Pain Sennosides/Docusate Sodium [Senna Plus] 1 each PO BID PRN #8 tablet PRN Reason: Constipation Home Medications: Calcium Carbonate/Vitamin D3 [Calcium 600-Vit D3 400 Tablet] 1 tab PO DAILY 08/16/18 [History] predniSONE [PredniSONE] 5 mg PO DAILY #30 tablet 12/14/18 [Rx] Mirtazapine [Remeron] 30 mg PO HS #30 tablet 01/25/19 [Rx] Olaparib [Lynparza] 300 mg PO BID 02/07/19 [History] Dexamethasone [Decadron] 4 mg PO BID 4 Days #8 tab 02/09/19 [Rx] LORazepam Oral Conc [Ativan Oral Conc] 0.5 mg PO Q4H PRN 4 Days #15 mls 02/09/19 [Rx] MORPHINE SUL Oral CONC [Roxanol Oral Conc] 10 mg PO Q2H PRN 4 Days #15 oral.syg 02/09/19 [Rx] Mirtazapine [Remeron] 30 mg PO HS 4 Days #4 tablet 02/09/19 [Rx] Prochlorperazine Maleate [Compazine] 10 mg PO Q6HR PRN 4 Days #16 tablet 02/09/19 [Rx] Sennosides/Docusate Sodium [Senna Plus] 1 each PO BID PRN #8 tablet 02/09/19 [Rx] Acetaminophen [Tylenol] 650 mg PO Q6HR PRN tablet 02/10/19 [Rx] Doxycycline 100 mg PO BID #20 capsule 02/10/19 [Rx] Levofloxacin [Levaquin] 750 mg PO DAILY #10 tablet 02/10/19 [Rx] Losartan [Cozaar] 25 mg PO DAILY #0 02/10/19 [Rx] hydroCHLOROthiazide [Hydrochlorothiazide] 12.5 mg PO DAILY #0 02/10/19 [Rx] Allergies/Adverse Reactions: Allergy/AdvReac Type Severity Reaction Status Date / Time lanolin Allergy See Verified 02/06/19 22:40 Comments latex AdvReac Rash Verified 02/06/19 22:40 Certification: Further, I certify that my clinical findings support that this patient is homebound (i.e. absences from home require considerable and taxing effort and are for medical reasons or [employer] or infrequently or short duration when for other reasons) because: Homebound Reason: Patient requires assistance of a person or device to safely leave home Attestation: My signature below is to certify that this patient is under my care and that I, or nurse practitioner, or a physician's physiotherapy assistant working with me, has a [id number] encounter with this patient.
--- NOTE | 2019-02-10 12:26 | Discharge Summary ---
- NOTES TO OUTPATIENT PROVIDER Notes to Outpatient Provider: Admitted for generalized malaise and UTI, found to have extensive metastatic disease secondary to underlying prostate adenocarcinoma. As per pt's wishes pt was transitioned to hospice care and is being discharged to home with home hospice. He will finish treatment of UTI at home with oral antibiotics. 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 He was started on IV abx and IV fluids as there was a concern for dehydration upon admission. Pt was further noted to have malignant pleural effusions bilaterally. He underwent CT chest which reported extensive metastatic disease for which oncology and palliative care were consulted. Pt and family decided to pursue hospice care and arrangements for home hospice have been made. Pt also developed hematuria during this hospitalization and urology closely followed the patient. Pt underwent bilateral therapeutic thoracentesis on 02/09/19 and reported significant improvement in his respiratory distress. He is currently ready for discharge to home with home hospice. Palliative care team has made arrangements for hospice care after discharge. Pt is to continue abx therapy for UTI after discharge. Pt was seen and examined on the day of discharge. Pt to follow up with urology, oncology,and PCP after discharge Discharge discussed with: patient, nurse, social work, case management - Time Spent with Patient Total time spent providing and/or coordinating discharge services: 35 minutes Time spent: Greater than 30 minutes - Discharge Medications Prescriptions: New LORazepam Oral Conc [Ativan Oral Conc] 0.5 mg PO Q4H PRN 4 Days #15 mls PRN Reason: Anxiety Prochlorperazine Maleate [Compazine] 10 mg PO Q6HR PRN 4 Days #16 tablet PRN Reason: Nausea Dexamethasone [Decadron] 4 mg PO BID 4 Days #8 tab Mirtazapine [Remeron] 30 mg PO HS 4 Days #4 tablet MORPHINE SUL Oral CONC [Roxanol Oral Conc] 10 mg PO Q2H PRN 4 Days #15 oral.syg PRN Reason: Pain Sennosides/Docusate Sodium [Senna Plus] 1 each PO BID PRN #8 tablet PRN Reason: Constipation Doxycycline 100 mg PO BID #20 capsule Levofloxacin [Levaquin] 750 mg PO DAILY #10 tablet Acetaminophen [Tylenol] 650 mg PO Q6HR PRN tablet PRN Reason: Fever Continued Calcium Carbonate/Vitamin D3 [Calcium 600-Vit D3 400 Tablet] 1 tab PO DAILY predniSONE [PredniSONE] 5 mg PO DAILY #30 tablet Mirtazapine [Remeron] 30 mg PO HS #30 tablet Olaparib [Lynparza] 300 mg PO BID Losartan [Cozaar] 25 mg PO DAILY #0 hydroCHLOROthiazide [Hydrochlorothiazide] 12.5 mg PO DAILY #0 Discontinued Oxycodone HCl/Acetaminophen [Percocet 10-325 mg Tablet] 1 each PO Q6H PRN 30 Days #120 tablet PRN Reason: Pain Home Medications: Calcium Carbonate/Vitamin D3 [Calcium 600-Vit D3 400 Tablet] 1 tab PO DAILY 08/16/18 [History] predniSONE [PredniSONE] 5 mg PO DAILY #30 tablet 12/14/18 [Rx] Mirtazapine [Remeron] 30 mg PO HS #30 tablet 01/25/19 [Rx] Olaparib [Lynparza] 300 mg PO BID 02/07/19 [History] Dexamethasone [Decadron] 4 mg PO BID 4 Days #8 tab 02/09/19 [Rx] LORazepam Oral Conc [Ativan Oral Conc] 0.5 mg PO Q4H PRN 4 Days #15 mls 02/09/19 [Rx] MORPHINE SUL Oral CONC [Roxanol Oral Conc] 10 mg PO Q2H PRN 4 Days #15 oral.syg 02/09/19 [Rx] Mirtazapine [Remeron] 30 mg PO HS 4 Days #4 tablet 02/09/19 [Rx] Prochlorperazine Maleate [Compazine] 10 mg PO Q6HR PRN 4 Days #16 tablet 02/09/19 [Rx] Sennosides/Docusate Sodium [Senna Plus] 1 each PO BID PRN #8 tablet 02/09/19 [Rx] Acetaminophen [Tylenol] 650 mg PO Q6HR PRN tablet 02/10/19 [Rx] Doxycycline 100 mg PO BID #20 capsule 02/10/19 [Rx] Levofloxacin [Levaquin] 750 mg PO DAILY #10 tablet 02/10/19 [Rx] Losartan [Cozaar] 25 mg PO DAILY #0 02/10/19 [Rx] hydroCHLOROthiazide [Hydrochlorothiazide] 12.5 mg PO DAILY #0 02/10/19 [Rx] Allergies/Adverse Reactions: Allergy/AdvReac Type Severity Reaction Status Date / Time lanolin Allergy See Verified 02/06/19 22:40 Comments latex AdvReac Rash Verified 02/06/19 22:40 Date of admission: 02/07/19 02:48 Primary care physician: PCP NONE Consults: 02/07/19 02:35 Consult to Palliative Care [CONS] Routine Comment: Consulting Provider: Palliative Care Gabriella Reason for Consult: progressive malignant disease presenting with generalized malaise. Call Completed: No 02/07/19 02:38 Consult to Nutrition [CONS] Routine Comment: Consulting Provider: NUTRITION Reason for Dietary Consult: PO Supplementation 02/08/19 07:16 Consult to Urology [CONS] Routine Consulting Provider: Urology Gabriella Reason for Consult: Hematuria Call Completed: Yes 02/08/19 09:23 Consult to Oncology Hematology [CONS] Routine Consulting Provider: Rosemarie Stevens Reason for Consult: prostate adenocarcinoma with metastatic disease Call Completed: Yes 02/08/19 15:44 Consult to Interventional Radiology [CONS] Routine Consulting Provider: Radiology Interventional Cols Reason for Consult: patient with bilateral malignant effusions and symptomatic, please eval for pleurx cath. Patient will be discharged with hospice care. Time Notified: 15:45 Call Completed: Yes Discharging clinician: Pinky May Anticipated date of discharge: 02/10/19 - Constitutional Vitals: Temp Pulse Resp BP Pulse Ox 98.3 F 74 15 84/54 94 02/10/19 05:53 02/10/19 06:46 02/10/19 06:46 02/10/19 06:46 02/10/19 06:46 Exam: General: AAO x 3, frail appearing elderly male HEENT: EOMI, NC/AT, no scleral icterus Respiratory: decreased breath sounds, no wheezing Cardiovascular: RRR, No murmurs GI: Soft, Non tender, non distended, normal bowel sounds Ext: pitting edema in b/l LE, no tenderness, positive pulses Neuro: AAO x 3, no focal deficits, CN II-XII grossly intact - Patient Status Disposition: Home Health Service Condition: Fair Functional capacity at discharge: uses cane/walker - Discharge Instructions Follow Up With: NONE,PCP [Primary Care Provider] - Additional Instructions: 1. Please follow up with your primary care physician within five days after your discharge from the hospital. 2. Please follow up with pulmonology, urology and oncology within one week after your discharge from the hospital. 3. Please hold your blood pressure medications at home for systolic blood pressure less than 100. 4. Please continue oral antibiotics as prescribed. 5. Please resume all your other home medications as prescribed by your primary care physician. 6. Please contact the hospice doctor if you have difficulty breathing. - Diet and Activity Activity: wear oxygen at all times, wear oxygen at night Diet: advance to your usual diet
[2019-02-10] MEDS ORDERED: Aminoglycoside Consult 1 EACH MC ONE (18:36)
== END 2019-02-10 18:37 | disposition home health service (06) | DRG 871 ==
LOC: 2NENU 22:39 → EMEROOARM 22:39 → 2NENU 02-07 02:06 → SUATTDRO 02-07 02:48 → 2NENU 02-07 16:58
PROVIDERS: ADMIT Family Medicine; ATTEND Internal Medicine